=== PATIENT | male | born 1950 ===

== ENCOUNTER 2021-07-10 09:41 | Inpatient (IN) | payer BC, OTHER ==
[~2021-07-10] VITALS: Ht 182.9 cm; Wt 93.5 kg
[2021-07-10 11:20] LABS: Basophils # (auto) 0 10 ^3/uL (0-0.2); Basophils % (auto) 0.7 % (0.0-2.0); Eosinophils # (auto) 0 10 ^3/uL (0-0.8); Hematocrit 45.5 % (41.0-53.0); Hemoglobin 15.7 g/dL (13.5-17.5); Lymphocytes # (auto) 0.4 10 ^3/uL (0.4-5.4); Mean Corpuscular Hemoglobin 30.3 pg (28.0-32.0); Mean Corpuscular Hgb Conc. 34.6 g/dL (32.0-36.0); Mean Corpuscular Volume 87.6 fL (80.0-100.0); Monocytes # (auto) 0.3 10 ^3/uL (0-1.3); Monocytes % (auto) 5.8 % (0.0-12.0); Neutrophils # (auto) 3.9 10 ^3/uL (1.6-8.6); Neutrophils % (auto) 84.5 % (37.0-80.0); Nucleated Red Blood Cells % 0.2 %; Red Cell Distribution Width 14.1 % (11.8-14.3); White Blood Cell 4.6 10^3/uL (4.4-10.8)
[2021-07-10 11:28] LABS: Albumin 3.1 g/dL (3.4-5.0); Calcium 8.6 mg/dL (8.5-10.1); Magnesium 2.8 mg/dL (1.6-2.6); Potassium 3.1 mmol/L (3.5-5.1)
[2021-07-10 11:31] LABS: Bilirubin, Total 0.8 mg/dL (0.2-1.0); Total Protein 7.2 g/dL (6.4-8.2)
[2021-07-10 17:10] LABS: Urine Bacteria NONE SEEN /hpf (None Seen); Urine Blood Negative /uL (Negative); Urine Mucus FEW (None Seen); Urine Specific Gravity 1.027 (1.001-1.035); Urine WBC 1 /hpf (0 - 3)
[2021-07-10] MEDS ORDERED: POTASSIUM CHL 20 Meq TABLET PO ONE (18:00)
[2021-07-10] MEDS ORDERED: REMDESIVIR PER PHARMACY 0 ML IV SCH (18:15)
[2021-07-10] MEDS ORDERED: MORPHINE SULFATE INJECTION 2 MG/ML SYRG IV PRN (18:15)
[2021-07-10] MEDS ORDERED: NITROGLYCERIN 0.4 MG SL TAB SL PRN (18:15)
[2021-07-10 20:02] LABS: Basophils # (auto) 0.1 10 ^3/uL (0-0.2); Basophils % (auto) 1.7 % (0.0-2.0); Eosinophils # (auto) 0 10 ^3/uL (0-0.8); Eosinophils % (auto) 0.3 % (0.0-7.0); Hematocrit 46.5 % (41.0-53.0); Hemoglobin 16.4 g/dL (13.5-17.5); Lymphocytes # (auto) 0.5 10 ^3/uL (0.4-5.4); Lymphocytes % (auto) 9.1 % (10.0-50.0); Mean Corpuscular Hemoglobin 30.6 pg (28.0-32.0); Mean Corpuscular Hgb Conc. 35.2 g/dL (32.0-36.0); Mean Corpuscular Volume 86.9 fL (80.0-100.0); Monocytes # (auto) 0.4 10 ^3/uL (0-1.3); Neutrophils # (auto) 4.2 10 ^3/uL (1.6-8.6); Neutrophils % (auto) 81.9 % (37.0-80.0); Nucleated Red Blood Cells % 0.1 %; Red Blood Cells 5.35 10^6/uL (4.5-5.90); Red Cell Distribution Width 13.9 % (11.8-14.3); White Blood Cell 5.2 10^3/uL (4.4-10.8)
[2021-07-10 20:20] LABS: Albumin 3.1 g/dL (3.4-5.0); BUN/Creatinine Ratio 25.6; Calcium 8.1 mg/dL (8.5-10.1); Magnesium 3.5 mg/dL (1.6-2.6); Potassium 4.2 mmol/L (3.5-5.1)
[2021-07-10 20:28] LABS: Bilirubin, Total 1.2 mg/dL (0.2-1.0); CRP High Sensitivity 10.3 mg/dL (< 0.3); Total Protein 6.9 g/dL (6.4-8.2)
[2021-07-10 20:29] LABS: Thyroid Stimulating Hormone 1.74 uIU/mL (0.358-3.74)
[2021-07-10] MEDS ORDERED: REMDESIVIR 200 MG in NS 210ml LOADING DOSE ADULT IV ONE (22:00)
[2021-07-10] MEDS ORDERED: GABA300C10 PO (23:32)
[2021-07-10] MEDS ORDERED: ATOR40TA52 PO (23:32)
[2021-07-10] MEDS ORDERED: HYDR12.56 PO (23:32)
[2021-07-11] MEDS: ENOXAPARIN SOD 40 MG/0.4 ML SYRINGE SC SCH ×3 (00:27→22:44)
[2021-07-11 05:00] VITALS: BP 139/74
[2021-07-11 08:00] VITALS: BP 124/68
[2021-07-11 08:19] LABS: Basophils # (auto) 0 10 ^3/uL (0-0.2); Basophils % (auto) 0.3 % (0.0-2.0); Eosinophils # (auto) 0 10 ^3/uL (0-0.8); Hematocrit 42.4 % (41.0-53.0); Hemoglobin 14.8 g/dL (13.5-17.5); Lymphocytes # (auto) 0.6 10 ^3/uL (0.4-5.4); Lymphocytes % (auto) 15.2 % (10.0-50.0); Mean Corpuscular Hemoglobin 30.4 pg (28.0-32.0); Mean Corpuscular Hgb Conc. 34.8 g/dL (32.0-36.0); Mean Corpuscular Volume 87.3 fL (80.0-100.0); Monocytes # (auto) 0.2 10 ^3/uL (0-1.3); Monocytes % (auto) 6.7 % (0.0-12.0); Neutrophils # (auto) 2.9 10 ^3/uL (1.6-8.6); Neutrophils % (auto) 77.8 % (37.0-80.0); Nucleated Red Blood Cells % 0.2 %; Red Blood Cells 4.86 10^6/uL (4.5-5.90); Red Cell Distribution Width 13.7 % (11.8-14.3); White Blood Cell 3.7 10^3/uL (4.4-10.8)
[2021-07-11 08:36] LABS: Albumin 2.8 g/dL (3.4-5.0); Calcium 8.2 mg/dL (8.5-10.1)
[2021-07-11 08:50] LABS: BUN/Creatinine Ratio 30.1; CRP High Sensitivity 11.1 mg/dL (< 0.3); Total Protein 6.5 g/dL (6.4-8.2)
[2021-07-11 08:58] LABS: Potassium 2.9 mmol/L (3.5-5.1)
[2021-07-11] MEDS ORDERED: POTASSIUM CHL 20 Meq TABLET PO ONE (09:15)
[2021-07-11] MEDS: DexAMETHasone SOD PHOS 10MG/1ML VIAL INJ IV SCH (10:15)
[2021-07-11] MEDS: ZINC SULFATE 220mg CAP or TAB PO SCH (10:15)
[2021-07-11] MEDS: CHOLECALCIFEROL (VITD3) 2,000 UNIT CAP/TAB PO SCH (10:16)
[2021-07-11] MEDS: ASCORBIC ACID 1,000 MG TAB PO SCH (10:16)
[2021-07-11] MEDS: AZITHROMYCIN 500MG/ 250ML 250 ML IV SCH (10:17)
[2021-07-11 12:00] VITALS: BP 137/79
[2021-07-11] MEDS: REMDESIVIR 100mg 100 MG in SODIUM CHL 0.9% 230 ML IV SCH (15:30)
[2021-07-11] MEDS: ALBUTEROL SULF HFA 90MCG INH 200DOSE IN PRN ×2 (15:33→20:08)
[2021-07-11 16:00] VITALS: BP 125/73
[2021-07-11 22:00] VITALS: BP 138/76
[2021-07-12 05:00] VITALS: BP 144/70
[2021-07-12 08:10] LABS: Basophils # (auto) 0 10 ^3/uL (0-0.2); Basophils % (auto) 0.1 % (0.0-2.0); Eosinophils # (auto) 0 10 ^3/uL (0-0.8); Hematocrit 43.2 % (41.0-53.0); Hemoglobin 14.9 g/dL (13.5-17.5); Lymphocytes # (auto) 0.8 10 ^3/uL (0.4-5.4); Lymphocytes % (auto) 16.1 % (10.0-50.0); Mean Corpuscular Hemoglobin 30.5 pg (28.0-32.0); Mean Corpuscular Hgb Conc. 34.5 g/dL (32.0-36.0); Mean Corpuscular Volume 88.4 fL (80.0-100.0); Monocytes # (auto) 0.3 10 ^3/uL (0-1.3); Monocytes % (auto) 5.8 % (0.0-12.0); Neutrophils # (auto) 3.8 10 ^3/uL (1.6-8.6); Nucleated Red Blood Cells % 0.2 %; Red Blood Cells 4.89 10^6/uL (4.5-5.90); Red Cell Distribution Width 13.9 % (11.8-14.3); White Blood Cell 4.9 10^3/uL (4.4-10.8)
[2021-07-12 08:27] LABS: Potassium 3.6 mmol/L (3.5-5.1)
[2021-07-12] MEDS: ALBUTEROL SULF HFA 90MCG INH 200DOSE IN PRN (08:33)
[2021-07-12 08:49] LABS: Albumin 2.8 g/dL (3.4-5.0); BUN/Creatinine Ratio 34.4; Bilirubin, Total 0.8 mg/dL (0.2-1.0); CRP High Sensitivity 7.94 mg/dL (< 0.3); Calcium 8.2 mg/dL (8.5-10.1)
[2021-07-12 09:00] VITALS: BP 121/73
[2021-07-12] MEDS: ASCORBIC ACID 1,000 MG TAB PO SCH (10:05)
[2021-07-12] MEDS: CHOLECALCIFEROL (VITD3) 2,000 UNIT CAP/TAB PO SCH (10:05)
[2021-07-12] MEDS: ENOXAPARIN SOD 40 MG/0.4 ML SYRINGE SC SCH ×2 (10:06→22:05)
[2021-07-12] MEDS: ZINC SULFATE 220mg CAP or TAB PO SCH (10:06)
[2021-07-12] MEDS: DexAMETHasone SOD PHOS 10MG/1ML VIAL INJ IV SCH (10:07)
[2021-07-12] MEDS: AZITHROMYCIN 500MG/ 250ML 250 ML IV SCH (10:08)
[2021-07-12] MEDS ORDERED: sulfaSALAzine 500 MG TAB PO ONE (12:45)
[2021-07-12] MEDS ORDERED: ATOR10TA PO (12:58)
[2021-07-12] MEDS ORDERED: SULF500T8 PO (12:58)
[2021-07-12] MEDS ORDERED: ALOG1TAB2 PO (12:58)
[2021-07-12] MEDS ORDERED: HYDR25TA5 PO (12:58)
[2021-07-12] MEDS ORDERED: GABA-339 PO (12:58)
[2021-07-12] MEDS ORDERED: CETI1TAB36 PO (12:58)
[2021-07-12] MEDS ORDERED: PRE1T PO (12:58)
[2021-07-12] MEDS ORDERED: OMEP20TA PO (12:58)
[2021-07-12] MEDS ORDERED: PANC3000 PO (12:58)
[2021-07-12 13:00] VITALS: BP 132/78
[2021-07-12] MEDS ORDERED: TRAM50TA2 PO (13:08)
[2021-07-12] MEDS ORDERED: BACL10TA PO (13:08)
[2021-07-12] MEDS ORDERED: CHOL200029 PO (13:08)
[2021-07-12] MEDS: GABAPENTIN 300 MG CAP PO SCH ×2 (13:54→22:05)
[2021-07-12] MEDS: REMDESIVIR 100mg 100 MG in SODIUM CHL 0.9% 230 ML IV SCH (15:25)
[2021-07-12 17:00] VITALS: BP 138/80
[2021-07-12 22:00] VITALS: BP 125/77
[2021-07-12] MEDS: sulfaSALAzine 500 MG TAB PO SCH (22:04)
[2021-07-13 05:00] VITALS: BP 99/52
[2021-07-13] MEDS: GABAPENTIN 300 MG CAP PO SCH ×3 (05:46→21:32)
[2021-07-13 08:10] LABS: Basophils # (auto) 0 10 ^3/uL (0-0.2); Basophils % (auto) 0.2 % (0.0-2.0); Eosinophils # (auto) 0 10 ^3/uL (0-0.8); Hemoglobin 14.3 g/dL (13.5-17.5); Lymphocytes # (auto) 0.7 10 ^3/uL (0.4-5.4); Mean Corpuscular Hemoglobin 30.8 pg (28.0-32.0); Mean Corpuscular Hgb Conc. 34.8 g/dL (32.0-36.0); Mean Corpuscular Volume 88.6 fL (80.0-100.0); Monocytes # (auto) 0.2 10 ^3/uL (0-1.3); Monocytes % (auto) 5.4 % (0.0-12.0); Neutrophils # (auto) 3.6 10 ^3/uL (1.6-8.6); Neutrophils % (auto) 79.4 % (37.0-80.0); Nucleated Red Blood Cells % 0.3 %; Red Blood Cells 4.63 10^6/uL (4.5-5.90); Red Cell Distribution Width 13.7 % (11.8-14.3); White Blood Cell 4.5 10^3/uL (4.4-10.8)
[2021-07-13 08:30] LABS: Potassium 3.1 mmol/L (3.5-5.1)
[2021-07-13 08:43] VITALS: BP 123/65
[2021-07-13 09:07] LABS: Albumin 2.6 g/dL (3.4-5.0); BUN/Creatinine Ratio 28.6; Bilirubin, Total 0.6 mg/dL (0.2-1.0); CRP High Sensitivity 4.29 mg/dL (< 0.3); Calcium 8.2 mg/dL (8.5-10.1); Total Protein 6.1 g/dL (6.4-8.2)
[2021-07-13] MEDS: CHOLECALCIFEROL (VITD3) 2,000 UNIT CAP/TAB PO SCH (09:27)
[2021-07-13] MEDS: ZINC SULFATE 220mg CAP or TAB PO SCH (09:27)
[2021-07-13] MEDS: AZITHROMYCIN 500MG/ 250ML 250 ML IV SCH (09:27)
[2021-07-13] MEDS: ASCORBIC ACID 1,000 MG TAB PO SCH (09:27)
[2021-07-13] MEDS: ENOXAPARIN SOD 40 MG/0.4 ML SYRINGE SC SCH ×2 (09:28→21:32)
[2021-07-13] MEDS: DexAMETHasone SOD PHOS 10MG/1ML VIAL INJ IV SCH (09:29)
[2021-07-13] MEDS: sulfaSALAzine 500 MG TAB PO SCH ×2 (09:30→21:32)
[2021-07-13] MEDS: HCTZ 25 MG TAB PO SCH (09:31)
[2021-07-13] MEDS: ALBUTEROL SULF HFA 90MCG INH 200DOSE IN PRN ×2 (12:01→23:48)
[2021-07-13 13:00] VITALS: BP 130/59
[2021-07-13] MEDS: REMDESIVIR 100mg 100 MG in SODIUM CHL 0.9% 230 ML IV SCH (14:35)
[2021-07-13 17:00] VITALS: BP 123/76
[2021-07-13 22:00] VITALS: BP 123/82
[2021-07-14 05:00] VITALS: BP 115/63
[2021-07-14] MEDS: GABAPENTIN 300 MG CAP PO SCH ×3 (05:57→21:58)
[2021-07-14] MEDS ORDERED: POTASSIUM CHL 20 Meq TABLET PO ONE (07:00)
[2021-07-14 07:39] LABS: Basophils # (auto) 0 10 ^3/uL (0-0.2); Eosinophils # (auto) 0 10 ^3/uL (0-0.8); Eosinophils % (auto) 0.5 % (0.0-7.0); Hemoglobin 14.4 g/dL (13.5-17.5); Lymphocytes # (auto) 0.5 10 ^3/uL (0.4-5.4); Lymphocytes % (auto) 7.4 % (10.0-50.0); Mean Corpuscular Hemoglobin 30.2 pg (28.0-32.0); Mean Corpuscular Hgb Conc. 34.2 g/dL (32.0-36.0); Mean Corpuscular Volume 88.5 fL (80.0-100.0); Monocytes # (auto) 0.1 10 ^3/uL (0-1.3); Monocytes % (auto) 2.3 % (0.0-12.0); Neutrophils # (auto) 5.8 10 ^3/uL (1.6-8.6); Neutrophils % (auto) 89.8 % (37.0-80.0); Nucleated Red Blood Cells % 0.2 %; Red Blood Cells 4.75 10^6/uL (4.5-5.90); Red Cell Distribution Width 13.9 % (11.8-14.3); White Blood Cell 6.4 10^3/uL (4.4-10.8)
[2021-07-14 07:47] LABS: Potassium 3.8 mmol/L (3.5-5.1)
[2021-07-14 07:57] LABS: Albumin 2.6 g/dL (3.4-5.0); BUN/Creatinine Ratio 20.9; Bilirubin, Total 0.6 mg/dL (0.2-1.0); Calcium 8.4 mg/dL (8.5-10.1); Total Protein 5.9 g/dL (6.4-8.2)
[2021-07-14 09:00] VITALS: BP 119/55
[2021-07-14] MEDS: ZINC SULFATE 220mg CAP or TAB PO SCH (09:52)
[2021-07-14] MEDS: ENOXAPARIN SOD 40 MG/0.4 ML SYRINGE SC SCH ×2 (09:52→22:00)
[2021-07-14] MEDS: CHOLECALCIFEROL (VITD3) 2,000 UNIT CAP/TAB PO SCH (09:52)
[2021-07-14] MEDS: ASCORBIC ACID 1,000 MG TAB PO SCH (09:52)
[2021-07-14] MEDS: AZITHROMYCIN 500MG/ 250ML 250 ML IV SCH (09:53)
[2021-07-14] MEDS: DexAMETHasone SOD PHOS 10MG/1ML VIAL INJ IV SCH (09:53)
[2021-07-14] MEDS: sulfaSALAzine 500 MG TAB PO SCH ×2 (09:53→22:06)
[2021-07-14] MEDS: HCTZ 25 MG TAB PO SCH (09:54)
[2021-07-14 13:05] VITALS: BP 122/65
[2021-07-14 14:40] VITALS: BP 125/64
[2021-07-14] MEDS: REMDESIVIR 100mg 100 MG in SODIUM CHL 0.9% 230 ML IV SCH (14:53)
[2021-07-14] MEDS: ALBUTEROL SULF HFA 90MCG INH 200DOSE IN PRN (15:22)
[2021-07-14 16:55] VITALS: BP 125/64
[2021-07-14] MEDS ORDERED: DEXTROSE (50%) 50ML SYRG IV PRN (18:15)
[2021-07-14] MEDS: ATORVASTATIN 20 MG TAB PO SCH (21:57)
[2021-07-14 22:00] VITALS: BP 110/57
[2021-07-14] MEDS: ACCU-CHEK COMFORT CURVE STRIP VI SCH (22:00)
[2021-07-14] MEDS: InsuLIN REG 1unit/0.01ml Soln (100units/ml) SC SCH (22:02)
[2021-07-15] MEDS: ACETAMINOPHEN 500 MG TAB PO PRN (04:04)
[2021-07-15 05:00] VITALS: BP 106/53
[2021-07-15] MEDS: GABAPENTIN 300 MG CAP PO SCH ×3 (05:57→21:19)
[2021-07-15] MEDS: ACCU-CHEK COMFORT CURVE STRIP VI SCH ×4 (05:57→21:20)
[2021-07-15] MEDS: InsuLIN REG 1unit/0.01ml Soln (100units/ml) SC SCH ×4 (05:57→21:31)
[2021-07-15 08:30] VITALS: BP 109/64
[2021-07-15] MEDS: ZINC SULFATE 220mg CAP or TAB PO SCH (10:47)
[2021-07-15] MEDS: CHOLECALCIFEROL (VITD3) 2,000 UNIT CAP/TAB PO SCH (10:48)
[2021-07-15] MEDS: ASCORBIC ACID 1,000 MG TAB PO SCH (10:48)
[2021-07-15] MEDS: DexAMETHasone SOD PHOS 10MG/1ML VIAL INJ IV SCH (10:49)
[2021-07-15] MEDS: AZITHROMYCIN 500MG/ 250ML 250 ML IV SCH (10:52)
[2021-07-15] MEDS: ENOXAPARIN SOD 40 MG/0.4 ML SYRINGE SC SCH ×2 (10:52→21:20)
[2021-07-15] MEDS: sulfaSALAzine 500 MG TAB PO SCH ×2 (10:52→21:18)
[2021-07-15] MEDS: HCTZ 25 MG TAB PO SCH (10:52)
[2021-07-15 12:39] VITALS: BP 117/76
[2021-07-15 14:06] LABS: Basophils # (auto) 0 10 ^3/uL (0-0.2); Eosinophils # (auto) 0.1 10 ^3/uL (0-0.8); Eosinophils % (auto) 0.6 % (0.0-7.0); Hematocrit 43.9 % (41.0-53.0); Hemoglobin 15.4 g/dL (13.5-17.5); Lymphocytes # (auto) 0.2 10 ^3/uL (0.4-5.4); Lymphocytes % (auto) 2.6 % (10.0-50.0); Mean Corpuscular Hemoglobin 30.7 pg (28.0-32.0); Mean Corpuscular Hgb Conc. 35.1 g/dL (32.0-36.0); Mean Corpuscular Volume 87.5 fL (80.0-100.0); Monocytes # (auto) 0.2 10 ^3/uL (0-1.3); Monocytes % (auto) 1.8 % (0.0-12.0); Neutrophils # (auto) 8.3 10 ^3/uL (1.6-8.6); Nucleated Red Blood Cells % 0.2 %; Red Blood Cells 5.01 10^6/uL (4.5-5.90); Red Cell Distribution Width 14.1 % (11.8-14.3); White Blood Cell 8.7 10^3/uL (4.4-10.8)
[2021-07-15 14:24] LABS: Albumin 2.6 g/dL (3.4-5.0); Calcium 8.6 mg/dL (8.5-10.1); Potassium 4.3 mmol/L (3.5-5.1)
[2021-07-15 14:32] LABS: BUN/Creatinine Ratio 18.8; Bilirubin, Total 0.7 mg/dL (0.2-1.0); Total Protein 6.4 g/dL (6.4-8.2)
[2021-07-15 15:30] VITALS: BP 123/67
[2021-07-15] MEDS: ATORVASTATIN 20 MG TAB PO SCH (21:18)
[2021-07-15 22:00] VITALS: BP 121/68
[2021-07-16] MEDS: ALBUTEROL SULF HFA 90MCG INH 200DOSE IN PRN ×2 (05:55→19:33)
[2021-07-16] MEDS: ACCU-CHEK COMFORT CURVE STRIP VI SCH ×4 (06:01→21:24)
[2021-07-16] MEDS: InsuLIN REG 1unit/0.01ml Soln (100units/ml) SC SCH ×4 (06:02→21:29)
[2021-07-16] MEDS: GABAPENTIN 300 MG CAP PO SCH ×3 (06:03→21:23)
[2021-07-16 06:08] VITALS: BP 127/71
[2021-07-16 07:18] LABS: Basophils # (auto) 0 10 ^3/uL (0-0.2); Basophils % (auto) 0.6 % (0.0-2.0); Eosinophils # (auto) 0.1 10 ^3/uL (0-0.8); Eosinophils % (auto) 0.9 % (0.0-7.0); Hematocrit 42.1 % (41.0-53.0); Hemoglobin 14.6 g/dL (13.5-17.5); Lymphocytes # (auto) 0.5 10 ^3/uL (0.4-5.4); Lymphocytes % (auto) 6.9 % (10.0-50.0); Mean Corpuscular Hemoglobin 31.1 pg (28.0-32.0); Mean Corpuscular Hgb Conc. 34.8 g/dL (32.0-36.0); Mean Corpuscular Volume 89.5 fL (80.0-100.0); Monocytes # (auto) 0.3 10 ^3/uL (0-1.3); Monocytes % (auto) 3.7 % (0.0-12.0); Neutrophils # (auto) 6.8 10 ^3/uL (1.6-8.6); Neutrophils % (auto) 87.9 % (37.0-80.0); Nucleated Red Blood Cells % 0.1 %; Red Blood Cells 4.71 10^6/uL (4.5-5.90); Red Cell Distribution Width 14.2 % (11.8-14.3); White Blood Cell 7.7 10^3/uL (4.4-10.8)
[2021-07-16 07:28] LABS: Potassium 4.6 mmol/L (3.5-5.1)
[2021-07-16 07:34] LABS: Albumin 2.5 g/dL (3.4-5.0); BUN/Creatinine Ratio 31.5; Bilirubin, Total 0.7 mg/dL (0.2-1.0); Calcium 8.3 mg/dL (8.5-10.1); Total Protein 5.6 g/dL (6.4-8.2)
[2021-07-16 09:09] VITALS: BP 97/54
[2021-07-16] MEDS: sulfaSALAzine 500 MG TAB PO SCH ×2 (10:00→21:23)
[2021-07-16] MEDS: DexAMETHasone SOD PHOS 10MG/1ML VIAL INJ IV SCH (11:22)
[2021-07-16] MEDS: HCTZ 25 MG TAB PO SCH (11:22)
[2021-07-16] MEDS: ASCORBIC ACID 1,000 MG TAB PO SCH (11:22)
[2021-07-16] MEDS: ZINC SULFATE 220mg CAP or TAB PO SCH (11:22)
[2021-07-16] MEDS: CHOLECALCIFEROL (VITD3) 2,000 UNIT CAP/TAB PO SCH (11:23)
[2021-07-16] MEDS: ENOXAPARIN SOD 40 MG/0.4 ML SYRINGE SC SCH ×2 (11:23→21:24)
[2021-07-16 12:31] VITALS: BP 138/84
[2021-07-16 16:36] VITALS: BP 118/71
[2021-07-16] MEDS: ATORVASTATIN 20 MG TAB PO SCH (21:23)
[2021-07-16 22:00] VITALS: BP 131/79
[2021-07-17 05:00] VITALS: BP 116/51
[2021-07-17 06:05] LABS: Basophils # (auto) 0 10 ^3/uL (0-0.2); Basophils % (auto) 0.2 % (0.0-2.0); Eosinophils # (auto) 0.1 10 ^3/uL (0-0.8); Eosinophils % (auto) 1.6 % (0.0-7.0); Hemoglobin 15.3 g/dL (13.5-17.5); Lymphocytes # (auto) 0.6 10 ^3/uL (0.4-5.4); Lymphocytes % (auto) 7.8 % (10.0-50.0); Mean Corpuscular Hemoglobin 30.1 pg (28.0-32.0); Mean Corpuscular Hgb Conc. 33.3 g/dL (32.0-36.0); Mean Corpuscular Volume 90.3 fL (80.0-100.0); Monocytes # (auto) 0.5 10 ^3/uL (0-1.3); Monocytes % (auto) 6.5 % (0.0-12.0); Neutrophils # (auto) 6.3 10 ^3/uL (1.6-8.6); Neutrophils % (auto) 83.9 % (37.0-80.0); Nucleated Red Blood Cells % 0.2 %; Red Cell Distribution Width 14.3 % (11.8-14.3); White Blood Cell 7.5 10^3/uL (4.4-10.8)
[2021-07-17 06:38] LABS: Anion Gap 8 (5-15); Calcium 8.5 mg/dL (8.5-10.1); Carbon Dioxide 28 mmol/L (21-32); Chloride 107 mmol/L (98-107); Potassium 4.9 mmol/L (3.5-5.1); Sodium 143 mmol/L (136-145)
[2021-07-17] MEDS: GABAPENTIN 300 MG CAP PO SCH ×3 (06:38→20:28)
[2021-07-17] MEDS: ACCU-CHEK COMFORT CURVE STRIP VI SCH ×4 (06:38→20:29)
[2021-07-17 06:42] LABS: Alanine Aminotransferase 118 U/L (16-61); Albumin 2.5 g/dL (3.4-5.0); Aspartate Aminotransferase 105 U/L (15-37); BUN/Creatinine Ratio 33.3; Blood Urea Nitrogen 19 mg/dL (7-18); GFR African American 183 mL/min; GFR Non-African American 151 mL/min; Glucose 101 mg/dL (74-106)
[2021-07-17 06:44] LABS: Alkaline Phosphatase 69 U/L (45-117); Bilirubin, Total 0.7 mg/dL (0.2-1.0); Total Protein 5.8 g/dL (6.4-8.2)
[2021-07-17] MEDS: InsuLIN REG 1unit/0.01ml Soln (100units/ml) SC SCH ×4 (06:52→20:30)
[2021-07-17 09:00] VITALS: BP 123/73
[2021-07-17] MEDS: ENOXAPARIN SOD 40 MG/0.4 ML SYRINGE SC SCH ×2 (10:55→20:29)
[2021-07-17] MEDS: ZINC SULFATE 220mg CAP or TAB PO SCH (10:55)
[2021-07-17] MEDS: ASCORBIC ACID 1,000 MG TAB PO SCH (10:55)
[2021-07-17] MEDS: CHOLECALCIFEROL (VITD3) 2,000 UNIT CAP/TAB PO SCH (10:56)
[2021-07-17] MEDS: DexAMETHasone SOD PHOS 10MG/1ML VIAL INJ IV SCH (10:59)
[2021-07-17] MEDS: HCTZ 25 MG TAB PO SCH (11:00)
[2021-07-17] MEDS: sulfaSALAzine 500 MG TAB PO SCH ×2 (11:27→20:28)
[2021-07-17 13:00] VITALS: BP 146/70
[2021-07-17 17:00] VITALS: BP 133/84
[2021-07-17] MEDS: ATORVASTATIN 20 MG TAB PO SCH (20:28)
[2021-07-17 22:00] VITALS: BP 134/78
[2021-07-17] MEDS: ALBUTEROL SULF HFA 90MCG INH 200DOSE IN PRN (23:59)
[2021-07-18 05:00] VITALS: BP 106/71
[2021-07-18] MEDS: ALBUTEROL SULF HFA 90MCG INH 200DOSE IN PRN ×2 (05:57→21:22)
[2021-07-18] MEDS: GABAPENTIN 300 MG CAP PO SCH ×3 (06:40→21:21)
[2021-07-18] MEDS: ACCU-CHEK COMFORT CURVE STRIP VI SCH ×4 (06:40→21:22)
[2021-07-18] MEDS: InsuLIN REG 1unit/0.01ml Soln (100units/ml) SC SCH ×4 (06:46→21:54)
[2021-07-18 07:14] LABS: Basophils # (auto) 0 10 ^3/uL (0-0.2); Basophils % (auto) 0.6 % (0.0-2.0); Eosinophils # (auto) 0 10 ^3/uL (0-0.8); Eosinophils % (auto) 0.5 % (0.0-7.0); Hematocrit 43.9 % (41.0-53.0); Lymphocytes # (auto) 0.7 10 ^3/uL (0.4-5.4); Lymphocytes % (auto) 9.6 % (10.0-50.0); Mean Corpuscular Hemoglobin 30.5 pg (28.0-32.0); Mean Corpuscular Hgb Conc. 34.2 g/dL (32.0-36.0); Mean Corpuscular Volume 89.4 fL (80.0-100.0); Monocytes # (auto) 0.6 10 ^3/uL (0-1.3); Monocytes % (auto) 8.2 % (0.0-12.0); Neutrophils # (auto) 5.5 10 ^3/uL (1.6-8.6); Neutrophils % (auto) 81.1 % (37.0-80.0); Nucleated Red Blood Cells % 0.2 %; Red Blood Cells 4.91 10^6/uL (4.5-5.90); Red Cell Distribution Width 13.7 % (11.8-14.3); White Blood Cell 6.8 10^3/uL (4.4-10.8)
[2021-07-18 07:35] LABS: Potassium 3.9 mmol/L (3.5-5.1)
[2021-07-18 07:55] LABS: Albumin 2.5 g/dL (3.4-5.0); BUN/Creatinine Ratio 33.9; Calcium 9.1 mg/dL (8.5-10.1); Total Protein 6.6 g/dL (6.4-8.2)
[2021-07-18 07:57] LABS: Bilirubin, Total 0.7 mg/dL (0.2-1.0)
[2021-07-18 08:20] VITALS: BP 119/67
[2021-07-18] MEDS: sulfaSALAzine 500 MG TAB PO SCH ×2 (10:00→21:21)
[2021-07-18 13:20] VITALS: BP 128/76
[2021-07-18] MEDS: ASCORBIC ACID 1,000 MG TAB PO SCH (14:00)
[2021-07-18] MEDS: ENOXAPARIN SOD 40 MG/0.4 ML SYRINGE SC SCH ×2 (14:00→21:22)
[2021-07-18] MEDS: DexAMETHasone SOD PHOS 10MG/1ML VIAL INJ IV SCH (14:00)
[2021-07-18] MEDS: HCTZ 25 MG TAB PO SCH (14:00)
[2021-07-18] MEDS: ZINC SULFATE 220mg CAP or TAB PO SCH (14:00)
[2021-07-18] MEDS: CHOLECALCIFEROL (VITD3) 2,000 UNIT CAP/TAB PO SCH (14:00)
[2021-07-18] MEDS: ATORVASTATIN 20 MG TAB PO SCH (21:21)
[2021-07-18 22:00] VITALS: BP 114/58
[2021-07-19 05:00] VITALS: BP 130/73
[2021-07-19] MEDS: GABAPENTIN 300 MG CAP PO SCH ×3 (06:10→20:50)
[2021-07-19] MEDS: ACCU-CHEK COMFORT CURVE STRIP VI SCH ×4 (06:10→20:50)
[2021-07-19] MEDS: InsuLIN REG 1unit/0.01ml Soln (100units/ml) SC SCH ×4 (06:10→20:50)
[2021-07-19 09:00] VITALS: BP 155/65
[2021-07-19] MEDS: ZINC SULFATE 220mg CAP or TAB PO SCH (09:41)
[2021-07-19] MEDS: ENOXAPARIN SOD 40 MG/0.4 ML SYRINGE SC SCH ×2 (09:41→20:50)
[2021-07-19] MEDS: DexAMETHasone SOD PHOS 10MG/1ML VIAL INJ IV SCH (09:41)
[2021-07-19] MEDS: sulfaSALAzine 500 MG TAB PO SCH ×2 (09:42→20:49)
[2021-07-19] MEDS: ASCORBIC ACID 1,000 MG TAB PO SCH (09:47)
[2021-07-19] MEDS: CHOLECALCIFEROL (VITD3) 2,000 UNIT CAP/TAB PO SCH (09:47)
[2021-07-19] MEDS: HCTZ 25 MG TAB PO SCH (10:03)
[2021-07-19 10:38] LABS: Basophils # (auto) 0.1 10 ^3/uL (0-0.2); Basophils % (auto) 1.1 % (0.0-2.0); Eosinophils # (auto) 0 10 ^3/uL (0-0.8); Eosinophils % (auto) 0.6 % (0.0-7.0); Hematocrit 41.7 % (41.0-53.0); Hemoglobin 14.4 g/dL (13.5-17.5); Lymphocytes # (auto) 0.8 10 ^3/uL (0.4-5.4); Lymphocytes % (auto) 10.5 % (10.0-50.0); Mean Corpuscular Hemoglobin 30.8 pg (28.0-32.0); Mean Corpuscular Hgb Conc. 34.6 g/dL (32.0-36.0); Monocytes # (auto) 0.4 10 ^3/uL (0-1.3); Monocytes % (auto) 4.9 % (0.0-12.0); Neutrophils # (auto) 6.1 10 ^3/uL (1.6-8.6); Neutrophils % (auto) 82.9 % (37.0-80.0); Red Blood Cells 4.68 10^6/uL (4.5-5.90); Red Cell Distribution Width 13.9 % (11.8-14.3); White Blood Cell 7.4 10^3/uL (4.4-10.8)
[2021-07-19 10:46] LABS: Potassium 3.6 mmol/L (3.5-5.1)
[2021-07-19 10:53] LABS: Albumin 2.3 g/dL (3.4-5.0); BUN/Creatinine Ratio 29.2; Bilirubin, Total 0.5 mg/dL (0.2-1.0); Calcium 8.7 mg/dL (8.5-10.1); Total Protein 6.2 g/dL (6.4-8.2)
[2021-07-19 13:06] VITALS: BP 122/81
[2021-07-19] MEDS: SALINE 0.65 % NASAL SPRAY 45ML BOTTLE EACHNOSTRI SCH ×2 (15:00→20:49)
[2021-07-19 17:34] VITALS: BP 136/75
[2021-07-19] MEDS: ATORVASTATIN 20 MG TAB PO SCH (20:49)
[2021-07-19 22:17] VITALS: BP 131/71
[2021-07-20 05:00] VITALS: BP 130/68
[2021-07-20] MEDS: ALBUTEROL SULF HFA 90MCG INH 200DOSE IN PRN (06:04)
[2021-07-20] MEDS: GABAPENTIN 300 MG CAP PO SCH ×3 (06:37→21:32)
[2021-07-20] MEDS: ACCU-CHEK COMFORT CURVE STRIP VI SCH ×4 (06:37→21:34)
[2021-07-20] MEDS: SALINE 0.65 % NASAL SPRAY 45ML BOTTLE EACHNOSTRI SCH ×3 (06:37→21:31)
[2021-07-20] MEDS: InsuLIN REG 1unit/0.01ml Soln (100units/ml) SC SCH ×4 (06:37→21:38)
[2021-07-20 09:00] VITALS: BP 138/70
[2021-07-20 09:08] LABS: Basophils # (auto) 0 10 ^3/uL (0-0.2); Basophils % (auto) 0.1 % (0.0-2.0); Eosinophils # (auto) 0.1 10 ^3/uL (0-0.8); Eosinophils % (auto) 0.8 % (0.0-7.0); Hematocrit 47.8 % (41.0-53.0); Hemoglobin 16.1 g/dL (13.5-17.5); Lymphocytes % (auto) 11.8 % (10.0-50.0); Mean Corpuscular Hemoglobin 30.4 pg (28.0-32.0); Mean Corpuscular Hgb Conc. 33.7 g/dL (32.0-36.0); Mean Corpuscular Volume 90.3 fL (80.0-100.0); Monocytes # (auto) 0.5 10 ^3/uL (0-1.3); Monocytes % (auto) 5.8 % (0.0-12.0); Neutrophils # (auto) 7.2 10 ^3/uL (1.6-8.6); Neutrophils % (auto) 81.5 % (37.0-80.0); Nucleated Red Blood Cells % 0.1 %; White Blood Cell 8.8 10^3/uL (4.4-10.8)
[2021-07-20 09:20] LABS: Potassium 3.8 mmol/L (3.5-5.1)
[2021-07-20 09:26] LABS: Albumin 2.7 g/dL (3.4-5.0); Bilirubin, Total 0.6 mg/dL (0.2-1.0); Calcium 9.1 mg/dL (8.5-10.1)
[2021-07-20] MEDS: ZINC SULFATE 220mg CAP or TAB PO SCH (10:53)
[2021-07-20] MEDS: sulfaSALAzine 500 MG TAB PO SCH ×2 (10:53→21:31)
[2021-07-20] MEDS: DexAMETHasone SOD PHOS 10MG/1ML VIAL INJ IV SCH (10:53)
[2021-07-20] MEDS: ENOXAPARIN SOD 40 MG/0.4 ML SYRINGE SC SCH ×2 (10:54→21:33)
[2021-07-20] MEDS: ASCORBIC ACID 1,000 MG TAB PO SCH (10:54)
[2021-07-20] MEDS: CHOLECALCIFEROL (VITD3) 2,000 UNIT CAP/TAB PO SCH (10:54)
[2021-07-20] MEDS: HCTZ 25 MG TAB PO SCH (10:54)
[2021-07-20 13:00] VITALS: BP 132/64
[2021-07-20 17:00] VITALS: BP 136/78
[2021-07-20] MEDS: ATORVASTATIN 20 MG TAB PO SCH (21:32)
[2021-07-20 22:00] VITALS: BP 121/57
[2021-07-21 05:00] VITALS: BP 94/40
[2021-07-21] MEDS: GABAPENTIN 300 MG CAP PO SCH ×3 (06:56→21:50)
[2021-07-21] MEDS: SALINE 0.65 % NASAL SPRAY 45ML BOTTLE EACHNOSTRI SCH ×3 (06:56→21:57)
[2021-07-21] MEDS: InsuLIN REG 1unit/0.01ml Soln (100units/ml) SC SCH ×4 (06:57→21:53)
[2021-07-21] MEDS: ACCU-CHEK COMFORT CURVE STRIP VI SCH ×4 (06:57→21:47)
[2021-07-21] MEDS: ALBUTEROL SULF HFA 90MCG INH 200DOSE IN PRN (07:39)
[2021-07-21 07:42] LABS: Basophils # (auto) 0.3 10 ^3/uL (0-0.2); Basophils % (auto) 3.3 % (0.0-2.0); Eosinophils # (auto) 0 10 ^3/uL (0-0.8); Eosinophils % (auto) 0.4 % (0.0-7.0); Hematocrit 45.9 % (41.0-53.0); Hemoglobin 15.4 g/dL (13.5-17.5); Lymphocytes # (auto) 0.8 10 ^3/uL (0.4-5.4); Lymphocytes % (auto) 10.1 % (10.0-50.0); Mean Corpuscular Hemoglobin 29.8 pg (28.0-32.0); Mean Corpuscular Hgb Conc. 33.6 g/dL (32.0-36.0); Mean Corpuscular Volume 88.8 fL (80.0-100.0); Monocytes # (auto) 0.6 10 ^3/uL (0-1.3); Monocytes % (auto) 7.2 % (0.0-12.0); Neutrophils # (auto) 6.3 10 ^3/uL (1.6-8.6); Nucleated Red Blood Cells % 0.3 %; Red Blood Cells 5.16 10^6/uL (4.5-5.90); Red Cell Distribution Width 13.6 % (11.8-14.3)
[2021-07-21 07:56] LABS: Potassium 4.2 mmol/L (3.5-5.1)
[2021-07-21 08:04] LABS: Albumin 2.7 g/dL (3.4-5.0); BUN/Creatinine Ratio 30.3; Bilirubin, Total 0.7 mg/dL (0.2-1.0); Calcium 9.1 mg/dL (8.5-10.1); Total Protein 7.3 g/dL (6.4-8.2)
[2021-07-21 09:00] VITALS: BP 128/60
[2021-07-21] MEDS: ZINC SULFATE 220mg CAP or TAB PO SCH (09:44)
[2021-07-21] MEDS: DexAMETHasone SOD PHOS 10MG/1ML VIAL INJ IV SCH (09:44)
[2021-07-21] MEDS: CHOLECALCIFEROL (VITD3) 2,000 UNIT CAP/TAB PO SCH (09:45)
[2021-07-21] MEDS: HCTZ 25 MG TAB PO SCH (09:45)
[2021-07-21] MEDS: ASCORBIC ACID 1,000 MG TAB PO SCH (09:45)
[2021-07-21] MEDS: ENOXAPARIN SOD 40 MG/0.4 ML SYRINGE SC SCH ×2 (09:45→21:48)
[2021-07-21] MEDS: sulfaSALAzine 500 MG TAB PO SCH ×2 (11:30→22:45)
[2021-07-21 13:00] VITALS: BP 124/71
[2021-07-21 17:00] VITALS: BP 117/66
[2021-07-21 21:36] VITALS: BP 121/65
[2021-07-21] MEDS: ATORVASTATIN 20 MG TAB PO SCH (21:50)
[2021-07-22 04:37] VITALS: BP 123/68
[2021-07-22] MEDS: SALINE 0.65 % NASAL SPRAY 45ML BOTTLE EACHNOSTRI SCH ×3 (06:13→22:34)
[2021-07-22] MEDS: GABAPENTIN 300 MG CAP PO SCH ×3 (06:13→22:30)
[2021-07-22] MEDS: ACCU-CHEK COMFORT CURVE STRIP VI SCH ×4 (06:14→22:32)
[2021-07-22] MEDS: InsuLIN REG 1unit/0.01ml Soln (100units/ml) SC SCH ×4 (06:14→22:00)
[2021-07-22 06:55] LABS: Basophils # (auto) 0 10 ^3/uL (0-0.2); Basophils % (auto) 0.4 % (0.0-2.0); Eosinophils # (auto) 0 10 ^3/uL (0-0.8); Eosinophils % (auto) 0.1 % (0.0-7.0); Hematocrit 41.6 % (41.0-53.0); Hemoglobin 14.1 g/dL (13.5-17.5); Lymphocytes % (auto) 11.1 % (10.0-50.0); Mean Corpuscular Hemoglobin 30.1 pg (28.0-32.0); Mean Corpuscular Hgb Conc. 33.9 g/dL (32.0-36.0); Mean Corpuscular Volume 88.8 fL (80.0-100.0); Monocytes # (auto) 0.8 10 ^3/uL (0-1.3); Monocytes % (auto) 8.2 % (0.0-12.0); Neutrophils # (auto) 7.3 10 ^3/uL (1.6-8.6); Neutrophils % (auto) 80.2 % (37.0-80.0); Nucleated Red Blood Cells % 0.1 %; Red Blood Cells 4.69 10^6/uL (4.5-5.90); Red Cell Distribution Width 13.9 % (11.8-14.3); White Blood Cell 9.1 10^3/uL (4.4-10.8)
[2021-07-22 07:10] LABS: Potassium 3.8 mmol/L (3.5-5.1)
[2021-07-22 07:21] LABS: Albumin 2.3 g/dL (3.4-5.0); Bilirubin, Total 0.7 mg/dL (0.2-1.0); Calcium 8.9 mg/dL (8.5-10.1); Total Protein 6.2 g/dL (6.4-8.2)
[2021-07-22 09:00] VITALS: BP 133/67
[2021-07-22] MEDS ORDERED: ALBUAER3 IN (09:35)
[2021-07-22] MEDS ORDERED: DEX4T PO (09:35)
[2021-07-22] MEDS ORDERED: ASCO10003 PO (09:35)
[2021-07-22] MEDS ORDERED: CHOL1CAP47 PO (09:35)
[2021-07-22] MEDS: sulfaSALAzine 500 MG TAB PO SCH ×2 (10:02→22:31)
[2021-07-22] MEDS: ASCORBIC ACID 1,000 MG TAB PO SCH (10:02)
[2021-07-22] MEDS: DexAMETHasone SOD PHOS 10MG/1ML VIAL INJ IV SCH (10:02)
[2021-07-22] MEDS: HCTZ 25 MG TAB PO SCH (10:02)
[2021-07-22] MEDS: ZINC SULFATE 220mg CAP or TAB PO SCH (10:02)
[2021-07-22] MEDS: CHOLECALCIFEROL (VITD3) 2,000 UNIT CAP/TAB PO SCH (10:03)
[2021-07-22 12:37] VITALS: BP 124/73
[2021-07-22] MEDS ORDERED: IOHEXOL 350 MG/ML 100ML IJ ONE (14:47)
[2021-07-22] MEDS ORDERED: diphenhdrAMINE HCL 25 MG CAP PO ONE ×2 (15:45→16:45)
[2021-07-22 16:37] VITALS: BP 109/71
[2021-07-22] MEDS: ALBUTEROL SULF HFA 90MCG INH 200DOSE IN PRN (19:57)
[2021-07-22 20:00] VITALS: BP 114/73
[2021-07-22] MEDS ORDERED: predniSONE 20 MG TAB PO ONE (20:00)
[2021-07-22 22:00] VITALS: BP 114/73
[2021-07-22] MEDS ORDERED: sulfaSALAzine 500 MG TAB PO ONE (22:15)
[2021-07-22] MEDS: ATORVASTATIN 20 MG TAB PO SCH (22:29)
[2021-07-22] MEDS: ENOXAPARIN SOD 40 MG/0.4 ML SYRINGE SC SCH (22:32)
[2021-07-23] MEDS ORDERED: predniSONE 20 MG TAB PO ONE ×2 (03:00→08:00)
[2021-07-23 05:00] VITALS: BP 132/70
[2021-07-23 06:06] LABS: Basophils # (auto) 0 10 ^3/uL (0-0.2); Basophils % (auto) 0.3 % (0.0-2.0); Eosinophils # (auto) 0 10 ^3/uL (0-0.8); Hematocrit 41.8 % (41.0-53.0); Hemoglobin 14.7 g/dL (13.5-17.5); Lymphocytes # (auto) 0.5 10 ^3/uL (0.4-5.4); Lymphocytes % (auto) 6.3 % (10.0-50.0); Mean Corpuscular Hemoglobin 31.1 pg (28.0-32.0); Mean Corpuscular Hgb Conc. 35.2 g/dL (32.0-36.0); Mean Corpuscular Volume 88.5 fL (80.0-100.0); Monocytes # (auto) 0.4 10 ^3/uL (0-1.3); Monocytes % (auto) 5.2 % (0.0-12.0); Neutrophils # (auto) 7.1 10 ^3/uL (1.6-8.6); Neutrophils % (auto) 88.2 % (37.0-80.0); Nucleated Red Blood Cells % 0.1 %; Red Blood Cells 4.73 10^6/uL (4.5-5.90); Red Cell Distribution Width 13.8 % (11.8-14.3)
[2021-07-23] MEDS: SALINE 0.65 % NASAL SPRAY 45ML BOTTLE EACHNOSTRI SCH ×3 (06:29→21:41)
[2021-07-23] MEDS: ACCU-CHEK COMFORT CURVE STRIP VI SCH ×4 (06:29→21:42)
[2021-07-23] MEDS: GABAPENTIN 300 MG CAP PO SCH ×3 (06:29→21:38)
[2021-07-23] MEDS: InsuLIN REG 1unit/0.01ml Soln (100units/ml) SC SCH ×4 (06:30→21:41)
[2021-07-23 06:32] LABS: Albumin 2.4 g/dL (3.4-5.0); Calcium 9.1 mg/dL (8.5-10.1)
[2021-07-23 06:37] LABS: Bilirubin, Total 0.7 mg/dL (0.2-1.0); Total Protein 6.4 g/dL (6.4-8.2)
[2021-07-23] MEDS: ALBUTEROL SULF HFA 90MCG INH 200DOSE IN PRN ×2 (07:54→21:51)
[2021-07-23 08:00] VITALS: BP 113/70
[2021-07-23] MEDS ORDERED: diphenhdrAMINE HCL 25 MG CAP PO ONE (08:00)
[2021-07-23] MEDS ORDERED: IOHEXOL 350 MG/ML 100ML IJ ONE (08:13)
[2021-07-23] MEDS: ZINC SULFATE 220mg CAP or TAB PO SCH (08:20)
[2021-07-23] MEDS: HCTZ 25 MG TAB PO SCH (08:20)
[2021-07-23] MEDS: DexAMETHasone SOD PHOS 10MG/1ML VIAL INJ IV SCH (08:20)
[2021-07-23] MEDS: sulfaSALAzine 500 MG TAB PO SCH ×2 (08:20→21:39)
[2021-07-23] MEDS: ASCORBIC ACID 1,000 MG TAB PO SCH (08:21)
[2021-07-23] MEDS: CHOLECALCIFEROL (VITD3) 2,000 UNIT CAP/TAB PO SCH (08:21)
[2021-07-23] MEDS: ENOXAPARIN SOD 40 MG/0.4 ML SYRINGE SC SCH ×2 (08:22→21:40)
[2021-07-23 13:00] VITALS: BP 124/77
[2021-07-23 20:00] VITALS: BP 112/67
[2021-07-23] MEDS: ATORVASTATIN 20 MG TAB PO SCH (21:40)
[2021-07-23 22:00] VITALS: BP 112/67
[2021-07-24 05:00] VITALS: BP 116/58
[2021-07-24 06:21] LABS: Basophils # (auto) 0 10 ^3/uL (0-0.2); Basophils % (auto) 0.2 % (0.0-2.0); Eosinophils # (auto) 0 10 ^3/uL (0-0.8); Eosinophils % (auto) 0.1 % (0.0-7.0); Hematocrit 43.4 % (41.0-53.0); Hemoglobin 14.8 g/dL (13.5-17.5); Lymphocytes # (auto) 0.9 10 ^3/uL (0.4-5.4); Lymphocytes % (auto) 8.8 % (10.0-50.0); Mean Corpuscular Hemoglobin 30.5 pg (28.0-32.0); Mean Corpuscular Volume 89.7 fL (80.0-100.0); Monocytes # (auto) 0.8 10 ^3/uL (0-1.3); Monocytes % (auto) 7.3 % (0.0-12.0); Neutrophils % (auto) 83.6 % (37.0-80.0); Nucleated Red Blood Cells % 0.2 %; Red Blood Cells 4.84 10^6/uL (4.5-5.90); White Blood Cell 10.7 10^3/uL (4.4-10.8)
[2021-07-24] MEDS: GABAPENTIN 300 MG CAP PO SCH ×3 (06:35→22:56)
[2021-07-24] MEDS: SALINE 0.65 % NASAL SPRAY 45ML BOTTLE EACHNOSTRI SCH ×3 (06:35→22:00)
[2021-07-24] MEDS: ACCU-CHEK COMFORT CURVE STRIP VI SCH ×4 (06:35→22:58)
[2021-07-24 06:39] LABS: Albumin 2.4 g/dL (3.4-5.0); Potassium 3.5 mmol/L (3.5-5.1)
[2021-07-24 06:40] LABS: BUN/Creatinine Ratio 34.8
[2021-07-24] MEDS: InsuLIN REG 1unit/0.01ml Soln (100units/ml) SC SCH ×4 (06:43→22:00)
[2021-07-24 06:53] LABS: Bilirubin, Total 0.7 mg/dL (0.2-1.0); Total Protein 6.5 g/dL (6.4-8.2)
[2021-07-24 09:09] VITALS: BP 112/68
[2021-07-24] MEDS: ZINC SULFATE 220mg CAP or TAB PO SCH ×2 (09:14→09:23)
[2021-07-24] MEDS: sulfaSALAzine 500 MG TAB PO SCH ×2 (09:14→22:57)
[2021-07-24] MEDS: CHOLECALCIFEROL (VITD3) 2,000 UNIT CAP/TAB PO SCH (09:15)
[2021-07-24] MEDS: HCTZ 25 MG TAB PO SCH (09:16)
[2021-07-24] MEDS: DexAMETHasone SOD PHOS 10MG/1ML VIAL INJ IV SCH (09:22)
[2021-07-24] MEDS: ENOXAPARIN SOD 40 MG/0.4 ML SYRINGE SC SCH ×2 (09:23→22:57)
[2021-07-24] MEDS: ASCORBIC ACID 1,000 MG TAB PO SCH (09:23)
[2021-07-24 13:22] VITALS: BP 137/87
[2021-07-24] MEDS: ALBUTEROL SULF HFA 90MCG INH 200DOSE IN PRN (20:50)
[2021-07-24 22:00] VITALS: BP 113/72
[2021-07-24] MEDS: ATORVASTATIN 20 MG TAB PO SCH (22:56)
[2021-07-25 05:00] VITALS: BP 110/66
[2021-07-25] MEDS: InsuLIN REG 1unit/0.01ml Soln (100units/ml) SC SCH ×4 (07:00→22:30)
[2021-07-25] MEDS: GABAPENTIN 300 MG CAP PO SCH ×3 (07:01→22:27)
[2021-07-25] MEDS: SALINE 0.65 % NASAL SPRAY 45ML BOTTLE EACHNOSTRI SCH ×3 (07:01→22:31)
[2021-07-25] MEDS: ACCU-CHEK COMFORT CURVE STRIP VI SCH ×4 (07:02→22:33)
[2021-07-25 07:15] LABS: Basophils # (auto) 0 10 ^3/uL (0-0.2); Basophils % (auto) 0.4 % (0.0-2.0); Eosinophils # (auto) 0 10 ^3/uL (0-0.8); Eosinophils % (auto) 0.3 % (0.0-7.0); Hematocrit 44.9 % (41.0-53.0); Hemoglobin 14.9 g/dL (13.5-17.5); Lymphocytes # (auto) 0.8 10 ^3/uL (0.4-5.4); Lymphocytes % (auto) 8.2 % (10.0-50.0); Mean Corpuscular Hemoglobin 30.2 pg (28.0-32.0); Mean Corpuscular Hgb Conc. 33.3 g/dL (32.0-36.0); Mean Corpuscular Volume 90.7 fL (80.0-100.0); Monocytes # (auto) 0.8 10 ^3/uL (0-1.3); Monocytes % (auto) 7.5 % (0.0-12.0); Neutrophils # (auto) 8.4 10 ^3/uL (1.6-8.6); Neutrophils % (auto) 83.6 % (37.0-80.0); Red Blood Cells 4.95 10^6/uL (4.5-5.90); Red Cell Distribution Width 14.2 % (11.8-14.3)
[2021-07-25 07:30] LABS: Potassium 4.3 mmol/L (3.5-5.1)
[2021-07-25 07:45] LABS: Albumin 2.2 g/dL (3.4-5.0); BUN/Creatinine Ratio 43.9; Calcium 9.2 mg/dL (8.5-10.1)
[2021-07-25 07:46] LABS: Bilirubin, Total 1.1 mg/dL (0.2-1.0); Total Protein 6.6 g/dL (6.4-8.2)
[2021-07-25 09:00] VITALS: BP 125/95
[2021-07-25] MEDS: CHOLECALCIFEROL (VITD3) 2,000 UNIT CAP/TAB PO SCH (10:22)
[2021-07-25] MEDS: ENOXAPARIN SOD 40 MG/0.4 ML SYRINGE SC SCH ×2 (10:23→22:28)
[2021-07-25] MEDS: ACETAMINOPHEN 500 MG TAB PO PRN ×2 (10:23→22:42)
[2021-07-25] MEDS: ASCORBIC ACID 1,000 MG TAB PO SCH (10:24)
[2021-07-25] MEDS: DexAMETHasone SOD PHOS 10MG/1ML VIAL INJ IV SCH (10:24)
[2021-07-25] MEDS: ZINC SULFATE 220mg CAP or TAB PO SCH (10:24)
[2021-07-25] MEDS: HCTZ 25 MG TAB PO SCH (10:26)
[2021-07-25] MEDS: sulfaSALAzine 500 MG TAB PO SCH ×2 (10:50→22:27)
[2021-07-25 13:00] VITALS: BP 117/63
[2021-07-25 17:00] VITALS: BP 120/74
[2021-07-25 20:17] VITALS: BP 103/77
[2021-07-25] MEDS: ATORVASTATIN 20 MG TAB PO SCH (22:28)
[2021-07-26] MEDS: ALBUTEROL SULF HFA 90MCG INH 200DOSE IN PRN ×2 (00:10→16:29)
[2021-07-26 04:39] VITALS: BP 95/52
[2021-07-26 06:02] LABS: Basophils # (auto) 0 10 ^3/uL (0-0.2); Basophils % (auto) 0.3 % (0.0-2.0); Eosinophils # (auto) 0 10 ^3/uL (0-0.8); Eosinophils % (auto) 0.5 % (0.0-7.0); Hemoglobin 13.9 g/dL (13.5-17.5); Lymphocytes # (auto) 0.9 10 ^3/uL (0.4-5.4); Lymphocytes % (auto) 10.7 % (10.0-50.0); Mean Corpuscular Hemoglobin 30.5 pg (28.0-32.0); Mean Corpuscular Hgb Conc. 33.9 g/dL (32.0-36.0); Mean Corpuscular Volume 89.8 fL (80.0-100.0); Monocytes # (auto) 0.5 10 ^3/uL (0-1.3); Monocytes % (auto) 6.8 % (0.0-12.0); Neutrophils # (auto) 6.5 10 ^3/uL (1.6-8.6); Neutrophils % (auto) 81.7 % (37.0-80.0); Red Blood Cells 4.57 10^6/uL (4.5-5.90); Red Cell Distribution Width 13.7 % (11.8-14.3)
[2021-07-26 06:31] LABS: Potassium 3.4 mmol/L (3.5-5.1)
[2021-07-26] MEDS: InsuLIN REG 1unit/0.01ml Soln (100units/ml) SC SCH ×4 (06:33→22:26)
[2021-07-26] MEDS: GABAPENTIN 300 MG CAP PO SCH ×3 (06:33→21:46)
[2021-07-26] MEDS: SALINE 0.65 % NASAL SPRAY 45ML BOTTLE EACHNOSTRI SCH ×3 (06:35→21:41)
[2021-07-26] MEDS: ACCU-CHEK COMFORT CURVE STRIP VI SCH ×4 (06:36→22:25)
[2021-07-26 06:39] LABS: Albumin 2.2 g/dL (3.4-5.0); BUN/Creatinine Ratio 62.9; Bilirubin, Total 0.6 mg/dL (0.2-1.0); Calcium 8.7 mg/dL (8.5-10.1); Total Protein 6.3 g/dL (6.4-8.2)
[2021-07-26 09:00] VITALS: BP 127/108
[2021-07-26] MEDS: sulfaSALAzine 500 MG TAB PO SCH ×2 (10:09→21:42)
[2021-07-26] MEDS: CHOLECALCIFEROL (VITD3) 2,000 UNIT CAP/TAB PO SCH (10:09)
[2021-07-26] MEDS: HCTZ 25 MG TAB PO SCH (10:10)
[2021-07-26] MEDS: ASCORBIC ACID 1,000 MG TAB PO SCH (10:11)
[2021-07-26] MEDS: ZINC SULFATE 220mg CAP or TAB PO SCH (10:11)
[2021-07-26] MEDS: ACETAMINOPHEN 500 MG TAB PO PRN (10:11)
[2021-07-26] MEDS: DexAMETHasone SOD PHOS 10MG/1ML VIAL INJ IV SCH (10:11)
[2021-07-26] MEDS: ENOXAPARIN SOD 40 MG/0.4 ML SYRINGE SC SCH ×2 (10:12→21:47)
[2021-07-26 13:00] VITALS: BP 118/67
[2021-07-26 21:00] VITALS: BP 115/76
[2021-07-26] MEDS: ATORVASTATIN 20 MG TAB PO SCH (21:42)
[2021-07-27 04:30] VITALS: BP 104/46
[2021-07-27] MEDS: SALINE 0.65 % NASAL SPRAY 45ML BOTTLE EACHNOSTRI SCH ×3 (06:36→22:47)
[2021-07-27] MEDS: GABAPENTIN 300 MG CAP PO SCH ×3 (06:37→22:48)
[2021-07-27] MEDS: InsuLIN REG 1unit/0.01ml Soln (100units/ml) SC SCH ×4 (06:38→22:50)
[2021-07-27] MEDS: ACCU-CHEK COMFORT CURVE STRIP VI SCH ×4 (06:38→22:48)
[2021-07-27] MEDS: ALBUTEROL SULF HFA 90MCG INH 200DOSE IN PRN ×2 (08:22→21:06)
[2021-07-27 09:00] VITALS: BP 133/78
[2021-07-27] MEDS: ZINC SULFATE 220mg CAP or TAB PO SCH (10:43)
[2021-07-27] MEDS: HCTZ 25 MG TAB PO SCH (10:43)
[2021-07-27] MEDS: DexAMETHasone SOD PHOS 10MG/1ML VIAL INJ IV SCH (10:43)
[2021-07-27] MEDS: sulfaSALAzine 500 MG TAB PO SCH ×2 (10:43→22:47)
[2021-07-27] MEDS: CHOLECALCIFEROL (VITD3) 2,000 UNIT CAP/TAB PO SCH (10:44)
[2021-07-27] MEDS: ASCORBIC ACID 1,000 MG TAB PO SCH (10:44)
[2021-07-27] MEDS: ENOXAPARIN SOD 40 MG/0.4 ML SYRINGE SC SCH ×2 (10:45→22:48)
[2021-07-27 10:58] LABS: Basophils # (auto) 0 10 ^3/uL (0-0.2); Basophils % (auto) 0.1 % (0.0-2.0); Eosinophils # (auto) 0 10 ^3/uL (0-0.8); Eosinophils % (auto) 0.6 % (0.0-7.0); Hematocrit 42.7 % (41.0-53.0); Hemoglobin 14.5 g/dL (13.5-17.5); Lymphocytes # (auto) 0.5 10 ^3/uL (0.4-5.4); Lymphocytes % (auto) 7.1 % (10.0-50.0); Mean Corpuscular Hemoglobin 30.4 pg (28.0-32.0); Mean Corpuscular Hgb Conc. 33.8 g/dL (32.0-36.0); Mean Corpuscular Volume 89.9 fL (80.0-100.0); Monocytes # (auto) 0.5 10 ^3/uL (0-1.3); Monocytes % (auto) 6.6 % (0.0-12.0); Neutrophils # (auto) 5.9 10 ^3/uL (1.6-8.6); Neutrophils % (auto) 85.6 % (37.0-80.0); Nucleated Red Blood Cells % 0.2 %; Red Blood Cells 4.75 10^6/uL (4.5-5.90); Red Cell Distribution Width 13.7 % (11.8-14.3); White Blood Cell 6.9 10^3/uL (4.4-10.8)
[2021-07-27 11:01] LABS: Albumin 2.3 g/dL (3.4-5.0); Calcium 8.8 mg/dL (8.5-10.1); Potassium 3.7 mmol/L (3.5-5.1)
[2021-07-27 11:06] LABS: BUN/Creatinine Ratio 32.9; Bilirubin, Total 0.5 mg/dL (0.2-1.0); Total Protein 6.7 g/dL (6.4-8.2)
[2021-07-27 21:49] VITALS: BP 102/61
[2021-07-27] MEDS: ATORVASTATIN 20 MG TAB PO SCH (22:47)
[2021-07-28] MEDS: ALPRAZolam 0.25 MG TAB PO PRN ×3 (02:08→21:05)
[2021-07-28 05:00] VITALS: BP 114/61
[2021-07-28] MEDS: SALINE 0.65 % NASAL SPRAY 45ML BOTTLE EACHNOSTRI SCH ×3 (06:35→21:03)
[2021-07-28] MEDS: ACCU-CHEK COMFORT CURVE STRIP VI SCH ×4 (06:35→22:17)
[2021-07-28] MEDS: GABAPENTIN 300 MG CAP PO SCH ×3 (06:35→21:04)
[2021-07-28] MEDS: InsuLIN REG 1unit/0.01ml Soln (100units/ml) SC SCH ×4 (06:36→22:18)
[2021-07-28 08:08] LABS: Basophils # (auto) 0 10 ^3/uL (0-0.2); Basophils % (auto) 0.3 % (0.0-2.0); Eosinophils # (auto) 0 10 ^3/uL (0-0.8); Eosinophils % (auto) 0.4 % (0.0-7.0); Hematocrit 43.3 % (41.0-53.0); Lymphocytes # (auto) 0.6 10 ^3/uL (0.4-5.4); Lymphocytes % (auto) 7.7 % (10.0-50.0); Mean Corpuscular Hemoglobin 30.8 pg (28.0-32.0); Mean Corpuscular Hgb Conc. 34.6 g/dL (32.0-36.0); Mean Corpuscular Volume 88.8 fL (80.0-100.0); Monocytes # (auto) 0.7 10 ^3/uL (0-1.3); Monocytes % (auto) 8.3 % (0.0-12.0); Neutrophils # (auto) 6.8 10 ^3/uL (1.6-8.6); Neutrophils % (auto) 83.3 % (37.0-80.0); Red Blood Cells 4.87 10^6/uL (4.5-5.90); Red Cell Distribution Width 13.8 % (11.8-14.3); White Blood Cell 8.2 10^3/uL (4.4-10.8)
[2021-07-28 08:09] LABS: Potassium 3.5 mmol/L (3.5-5.1)
[2021-07-28 08:21] LABS: Albumin 2.4 g/dL (3.4-5.0); Bilirubin, Total 0.6 mg/dL (0.2-1.0); Calcium 9.1 mg/dL (8.5-10.1); Total Protein 6.9 g/dL (6.4-8.2)
[2021-07-28 09:00] VITALS: BP 123/66
[2021-07-28] MEDS: ZINC SULFATE 220mg CAP or TAB PO SCH (09:04)
[2021-07-28] MEDS: DexAMETHasone SOD PHOS 10MG/1ML VIAL INJ IV SCH (09:04)
[2021-07-28] MEDS: sulfaSALAzine 500 MG TAB PO SCH ×2 (09:04→21:03)
[2021-07-28] MEDS: CHOLECALCIFEROL (VITD3) 2,000 UNIT CAP/TAB PO SCH (09:05)
[2021-07-28] MEDS: ASCORBIC ACID 1,000 MG TAB PO SCH (09:05)
[2021-07-28] MEDS: ACETAMINOPHEN 500 MG TAB PO PRN (09:06)
[2021-07-28] MEDS: ENOXAPARIN SOD 40 MG/0.4 ML SYRINGE SC SCH ×2 (09:06→21:04)
[2021-07-28] MEDS: HCTZ 25 MG TAB PO SCH (09:24)
[2021-07-28] MEDS: ALBUTEROL SULF HFA 90MCG INH 200DOSE IN PRN (09:46)
[2021-07-28 13:00] VITALS: BP 126/72
[2021-07-28 17:00] VITALS: BP 138/71
[2021-07-28] MEDS: ATORVASTATIN 20 MG TAB PO SCH (21:04)
[2021-07-28 21:33] VITALS: BP 107/69
[2021-07-29 05:11] VITALS: BP 130/74
[2021-07-29] MEDS: SALINE 0.65 % NASAL SPRAY 45ML BOTTLE EACHNOSTRI SCH ×3 (06:02→23:21)
[2021-07-29] MEDS: GABAPENTIN 300 MG CAP PO SCH ×3 (06:03→23:22)
[2021-07-29] MEDS: ACETAMINOPHEN 500 MG TAB PO PRN ×2 (06:04→09:21)
[2021-07-29] MEDS: ACCU-CHEK COMFORT CURVE STRIP VI SCH ×4 (06:30→23:23)
[2021-07-29] MEDS: InsuLIN REG 1unit/0.01ml Soln (100units/ml) SC SCH ×4 (06:30→22:00)
[2021-07-29 07:10] LABS: Basophils # (auto) 0 10 ^3/uL (0-0.2); Basophils % (auto) 0.1 % (0.0-2.0); Eosinophils # (auto) 0 10 ^3/uL (0-0.8); Eosinophils % (auto) 0.3 % (0.0-7.0); Hematocrit 44.1 % (41.0-53.0); Hemoglobin 15.1 g/dL (13.5-17.5); Lymphocytes # (auto) 0.6 10 ^3/uL (0.4-5.4); Lymphocytes % (auto) 6.6 % (10.0-50.0); Mean Corpuscular Hemoglobin 30.7 pg (28.0-32.0); Mean Corpuscular Hgb Conc. 34.3 g/dL (32.0-36.0); Mean Corpuscular Volume 89.6 fL (80.0-100.0); Monocytes # (auto) 0.7 10 ^3/uL (0-1.3); Monocytes % (auto) 7.4 % (0.0-12.0); Neutrophils # (auto) 7.8 10 ^3/uL (1.6-8.6); Neutrophils % (auto) 85.6 % (37.0-80.0); Red Blood Cells 4.92 10^6/uL (4.5-5.90); Red Cell Distribution Width 13.5 % (11.8-14.3); White Blood Cell 9.1 10^3/uL (4.4-10.8)
[2021-07-29 07:22] LABS: Albumin 2.4 g/dL (3.4-5.0); Calcium 8.8 mg/dL (8.5-10.1); Potassium 3.8 mmol/L (3.5-5.1)
[2021-07-29 07:26] LABS: BUN/Creatinine Ratio 37.7; Bilirubin, Total 0.6 mg/dL (0.2-1.0); Total Protein 6.8 g/dL (6.4-8.2)
[2021-07-29] MEDS: DexAMETHasone SOD PHOS 10MG/1ML VIAL INJ IV SCH (09:03)
[2021-07-29] MEDS: sulfaSALAzine 500 MG TAB PO SCH ×2 (09:04→22:00)
[2021-07-29] MEDS: ZINC SULFATE 220mg CAP or TAB PO SCH (09:04)
[2021-07-29] MEDS: ENOXAPARIN SOD 40 MG/0.4 ML SYRINGE SC SCH ×2 (09:06→23:23)
[2021-07-29] MEDS: ASCORBIC ACID 1,000 MG TAB PO SCH (09:06)
[2021-07-29] MEDS: CHOLECALCIFEROL (VITD3) 2,000 UNIT CAP/TAB PO SCH (09:06)
[2021-07-29] MEDS: HCTZ 25 MG TAB PO SCH (09:20)
[2021-07-29] MEDS: ALPRAZolam 0.25 MG TAB PO PRN (09:21)
[2021-07-29] MEDS: ALBUTEROL SULF HFA 90MCG INH 200DOSE IN PRN ×2 (11:36→19:21)
[2021-07-29 20:15] VITALS: BP 116/69
[2021-07-29 22:00] VITALS: BP 116/69
[2021-07-29] MEDS: ATORVASTATIN 20 MG TAB PO SCH (23:22)
[2021-07-30 05:00] VITALS: BP 127/80
[2021-07-30] MEDS: ALBUTEROL SULF HFA 90MCG INH 200DOSE IN PRN ×2 (06:07→19:53)
[2021-07-30] MEDS: SALINE 0.65 % NASAL SPRAY 45ML BOTTLE EACHNOSTRI SCH ×3 (06:37→22:29)
[2021-07-30] MEDS: GABAPENTIN 300 MG CAP PO SCH ×3 (06:38→22:24)
[2021-07-30] MEDS: ACCU-CHEK COMFORT CURVE STRIP VI SCH ×4 (06:38→22:25)
[2021-07-30] MEDS: InsuLIN REG 1unit/0.01ml Soln (100units/ml) SC SCH ×4 (06:38→22:26)
[2021-07-30 07:23] LABS: Albumin 2.1 g/dL (3.4-5.0); Anion Gap 6 (5-15); BUN/Creatinine Ratio 37.5; Blood Urea Nitrogen 24 mg/dL (7-18); Calcium 8.6 mg/dL (8.5-10.1); Carbon Dioxide 29 mmol/L (21-32); Chloride 101 mmol/L (98-107); GFR African American 160 mL/min; GFR Non-African American 132 mL/min; Glucose 118 mg/dL (74-106); Potassium 4.2 mmol/L (3.5-5.1); Sodium 136 mmol/L (136-145)
[2021-07-30 07:27] LABS: Alanine Aminotransferase 263 U/L (16-61); Alkaline Phosphatase 131 U/L (45-117); Aspartate Aminotransferase 84 U/L (15-37); Bilirubin, Total 0.6 mg/dL (0.2-1.0); Total Protein 6.7 g/dL (6.4-8.2)
[2021-07-30 09:00] VITALS: BP 133/76
[2021-07-30] MEDS: DexAMETHasone SOD PHOS 10MG/1ML VIAL INJ IV SCH (09:09)
[2021-07-30] MEDS: ZINC SULFATE 220mg CAP or TAB PO SCH (09:09)
[2021-07-30] MEDS: HCTZ 25 MG TAB PO SCH (09:09)
[2021-07-30] MEDS: ENOXAPARIN SOD 40 MG/0.4 ML SYRINGE SC SCH ×2 (09:12→22:24)
[2021-07-30] MEDS: CHOLECALCIFEROL (VITD3) 2,000 UNIT CAP/TAB PO SCH (09:12)
[2021-07-30] MEDS: ALPRAZolam 0.25 MG TAB PO PRN (09:12)
[2021-07-30] MEDS: ASCORBIC ACID 1,000 MG TAB PO SCH (09:12)
[2021-07-30] MEDS: sulfaSALAzine 500 MG TAB PO SCH (10:00)
[2021-07-30] MEDS: ACETAMINOPHEN 500 MG TAB PO PRN (12:03)
[2021-07-30 15:25] VITALS: BP 129/62
[2021-07-30 15:55] LABS: Basophils # (auto) 0 10 ^3/uL (0-0.2); Basophils % (auto) 0.4 % (0.0-2.0); Eosinophils # (auto) 0 10 ^3/uL (0-0.8); Eosinophils % (auto) 0.2 % (0.0-7.0); Hematocrit 42.1 % (41.0-53.0); Hemoglobin 14.4 g/dL (13.5-17.5); Lymphocytes # (auto) 0.5 10 ^3/uL (0.4-5.4); Lymphocytes % (auto) 6.5 % (10.0-50.0); Mean Corpuscular Hemoglobin 30.2 pg (28.0-32.0); Mean Corpuscular Hgb Conc. 34.1 g/dL (32.0-36.0); Mean Corpuscular Volume 88.7 fL (80.0-100.0); Monocytes # (auto) 0.5 10 ^3/uL (0-1.3); Monocytes % (auto) 6.4 % (0.0-12.0); Neutrophils # (auto) 6.8 10 ^3/uL (1.6-8.6); Neutrophils % (auto) 86.5 % (37.0-80.0); Nucleated Red Blood Cells % 0.7 %; Red Blood Cells 4.75 10^6/uL (4.5-5.90); Red Cell Distribution Width 13.6 % (11.8-14.3); White Blood Cell 7.9 10^3/uL (4.4-10.8)
[2021-07-30 18:17] VITALS: BP 127/84
[2021-07-30 20:15] VITALS: BP 121/78
[2021-07-30] MEDS: ATORVASTATIN 20 MG TAB PO SCH (22:24)
[2021-07-31 04:54] VITALS: BP_SYST 108; BP_SYST 133; BP_DIAS 48; BP_DIAS 78
[2021-07-31] MEDS: SALINE 0.65 % NASAL SPRAY 45ML BOTTLE EACHNOSTRI SCH ×3 (06:40→22:25)
[2021-07-31] MEDS: ACCU-CHEK COMFORT CURVE STRIP VI SCH ×4 (06:40→22:14)
[2021-07-31] MEDS: ALPRAZolam 0.25 MG TAB PO PRN ×2 (06:41→23:47)
[2021-07-31] MEDS: InsuLIN REG 1unit/0.01ml Soln (100units/ml) SC SCH ×4 (06:42→22:24)
[2021-07-31] MEDS: GABAPENTIN 300 MG CAP PO SCH ×3 (06:42→22:13)
[2021-07-31 08:00] VITALS: BP 129/67
[2021-07-31] MEDS: ZINC SULFATE 220mg CAP or TAB PO SCH (09:05)
[2021-07-31] MEDS: DexAMETHasone SOD PHOS 10MG/1ML VIAL INJ IV SCH (09:05)
[2021-07-31] MEDS: HCTZ 25 MG TAB PO SCH (09:06)
[2021-07-31] MEDS: ASCORBIC ACID 1,000 MG TAB PO SCH (09:07)
[2021-07-31] MEDS: CHOLECALCIFEROL (VITD3) 2,000 UNIT CAP/TAB PO SCH (09:07)
[2021-07-31] MEDS: ENOXAPARIN SOD 40 MG/0.4 ML SYRINGE SC SCH ×2 (09:07→22:14)
[2021-07-31 11:22] VITALS: BP 145/83
[2021-07-31 12:00] VITALS: BP 145/83
[2021-07-31 15:43] LABS: Basophils # (auto) 0 10 ^3/uL (0-0.2); Basophils % (auto) 0.2 % (0.0-2.0); Eosinophils # (auto) 0 10 ^3/uL (0-0.8); Hematocrit 44.9 % (41.0-53.0); Hemoglobin 15.2 g/dL (13.5-17.5); Lymphocytes # (auto) 0.8 10 ^3/uL (0.4-5.4); Lymphocytes % (auto) 7.6 % (10.0-50.0); Mean Corpuscular Hemoglobin 30.2 pg (28.0-32.0); Mean Corpuscular Hgb Conc. 33.9 g/dL (32.0-36.0); Mean Corpuscular Volume 89.1 fL (80.0-100.0); Monocytes # (auto) 0.5 10 ^3/uL (0-1.3); Monocytes % (auto) 5.2 % (0.0-12.0); Neutrophils # (auto) 8.9 10 ^3/uL (1.6-8.6); Nucleated Red Blood Cells % 0.1 %; Red Blood Cells 5.04 10^6/uL (4.5-5.90); Red Cell Distribution Width 13.6 % (11.8-14.3); White Blood Cell 10.3 10^3/uL (4.4-10.8)
[2021-07-31 15:56] VITALS: BP 114/65
[2021-07-31 15:57] LABS: Albumin 2.4 g/dL (3.4-5.0); Potassium 4.2 mmol/L (3.5-5.1)
[2021-07-31 16:01] LABS: Bilirubin, Total 0.5 mg/dL (0.2-1.0); Total Protein 7.2 g/dL (6.4-8.2)
[2021-07-31 16:32] LABS: BUN/Creatinine Ratio 36.4
[2021-07-31 22:00] VITALS: BP 134/75
[2021-07-31] MEDS: ATORVASTATIN 20 MG TAB PO SCH (22:13)
[2021-08-01 05:00] VITALS: BP 140/77
[2021-08-01] MEDS: ALBUTEROL SULF HFA 90MCG INH 200DOSE IN PRN ×2 (06:00→20:15)
[2021-08-01] MEDS: ACCU-CHEK COMFORT CURVE STRIP VI SCH ×4 (06:18→22:01)
[2021-08-01] MEDS: InsuLIN REG 1unit/0.01ml Soln (100units/ml) SC SCH ×4 (06:18→22:03)
[2021-08-01] MEDS: GABAPENTIN 300 MG CAP PO SCH ×3 (06:19→22:01)
[2021-08-01] MEDS: SALINE 0.65 % NASAL SPRAY 45ML BOTTLE EACHNOSTRI SCH ×3 (06:19→22:01)
[2021-08-01 07:48] LABS: Basophils # (auto) 0 10 ^3/uL (0-0.2); Basophils % (auto) 0.4 % (0.0-2.0); Eosinophils # (auto) 0.1 10 ^3/uL (0-0.8); Eosinophils % (auto) 0.9 % (0.0-7.0); Hematocrit 42.8 % (41.0-53.0); Hemoglobin 14.5 g/dL (13.5-17.5); Lymphocytes % (auto) 9.5 % (10.0-50.0); Mean Corpuscular Hemoglobin 30.1 pg (28.0-32.0); Mean Corpuscular Volume 88.6 fL (80.0-100.0); Monocytes # (auto) 0.8 10 ^3/uL (0-1.3); Monocytes % (auto) 7.9 % (0.0-12.0); Neutrophils # (auto) 8.3 10 ^3/uL (1.6-8.6); Neutrophils % (auto) 81.3 % (37.0-80.0); Red Blood Cells 4.84 10^6/uL (4.5-5.90); Red Cell Distribution Width 13.7 % (11.8-14.3); White Blood Cell 10.2 10^3/uL (4.4-10.8)
[2021-08-01 08:04] LABS: Potassium 3.8 mmol/L (3.5-5.1)
[2021-08-01 08:11] LABS: Albumin 2.3 g/dL (3.4-5.0); BUN/Creatinine Ratio 48.2; Bilirubin, Total 0.7 mg/dL (0.2-1.0)
[2021-08-01 08:41] VITALS: BP 114/68
[2021-08-01] MEDS: ENOXAPARIN SOD 40 MG/0.4 ML SYRINGE SC SCH ×2 (10:27→22:01)
[2021-08-01] MEDS: CHOLECALCIFEROL (VITD3) 2,000 UNIT CAP/TAB PO SCH (10:27)
[2021-08-01] MEDS: DexAMETHasone SOD PHOS 10MG/1ML VIAL INJ IV SCH (10:27)
[2021-08-01] MEDS: ASCORBIC ACID 1,000 MG TAB PO SCH (10:27)
[2021-08-01] MEDS: ZINC SULFATE 220mg CAP or TAB PO SCH (10:27)
[2021-08-01] MEDS: HCTZ 25 MG TAB PO SCH (10:28)
[2021-08-01] MEDS: ALPRAZolam 0.25 MG TAB PO PRN ×2 (11:35→19:44)
[2021-08-01 12:50] VITALS: BP 109/61
[2021-08-01 17:00] VITALS: BP 120/70
[2021-08-01 20:00] VITALS: BP 121/72
[2021-08-01 22:00] VITALS: BP 121/72
[2021-08-01] MEDS: ATORVASTATIN 20 MG TAB PO SCH (22:01)
[2021-08-02 05:00] VITALS: BP 118/76
[2021-08-02] MEDS: GABAPENTIN 300 MG CAP PO SCH ×3 (06:08→21:51)
[2021-08-02] MEDS: SALINE 0.65 % NASAL SPRAY 45ML BOTTLE EACHNOSTRI SCH ×3 (06:08→21:50)
[2021-08-02] MEDS: InsuLIN REG 1unit/0.01ml Soln (100units/ml) SC SCH ×4 (06:26→21:51)
[2021-08-02] MEDS: ACCU-CHEK COMFORT CURVE STRIP VI SCH ×4 (06:26→21:51)
[2021-08-02 06:48] LABS: Basophils # (auto) 0 10 ^3/uL (0-0.2); Basophils % (auto) 0.3 % (0.0-2.0); Eosinophils # (auto) 0.1 10 ^3/uL (0-0.8); Eosinophils % (auto) 1.5 % (0.0-7.0); Hematocrit 40.5 % (41.0-53.0); Hemoglobin 13.9 g/dL (13.5-17.5); Lymphocytes # (auto) 1.2 10 ^3/uL (0.4-5.4); Mean Corpuscular Hemoglobin 30.5 pg (28.0-32.0); Mean Corpuscular Hgb Conc. 34.3 g/dL (32.0-36.0); Mean Corpuscular Volume 89.1 fL (80.0-100.0); Monocytes # (auto) 0.6 10 ^3/uL (0-1.3); Monocytes % (auto) 6.8 % (0.0-12.0); Neutrophils # (auto) 6.9 10 ^3/uL (1.6-8.6); Neutrophils % (auto) 77.4 % (37.0-80.0); Nucleated Red Blood Cells % 0.1 %; Red Blood Cells 4.55 10^6/uL (4.5-5.90); Red Cell Distribution Width 13.8 % (11.8-14.3); White Blood Cell 8.9 10^3/uL (4.4-10.8)
[2021-08-02 07:00] LABS: Albumin 2.2 g/dL (3.4-5.0); Calcium 9.1 mg/dL (8.5-10.1); Potassium 3.5 mmol/L (3.5-5.1)
[2021-08-02 07:03] LABS: Bilirubin, Total 0.5 mg/dL (0.2-1.0); Total Protein 6.7 g/dL (6.4-8.2)
[2021-08-02 09:02] VITALS: BP 118/67
[2021-08-02] MEDS: DexAMETHasone SOD PHOS 10MG/1ML VIAL INJ IV SCH (09:58)
[2021-08-02] MEDS: HCTZ 25 MG TAB PO SCH (09:58)
[2021-08-02] MEDS: ASCORBIC ACID 1,000 MG TAB PO SCH (09:58)
[2021-08-02] MEDS: ZINC SULFATE 220mg CAP or TAB PO SCH (09:58)
[2021-08-02] MEDS: CHOLECALCIFEROL (VITD3) 2,000 UNIT CAP/TAB PO SCH (09:58)
[2021-08-02] MEDS: ENOXAPARIN SOD 40 MG/0.4 ML SYRINGE SC SCH ×2 (09:59→21:52)
[2021-08-02] MEDS: ALPRAZolam 0.25 MG TAB PO PRN (10:35)
[2021-08-02 12:20] VITALS: BP_SYST 131; BP_SYST 163; BP_SYST 180; BP_DIAS 69; BP_DIAS 73; BP_DIAS 74
[2021-08-02 16:45] VITALS: BP 124/72
[2021-08-02 20:00] VITALS: BP 117/75
[2021-08-02] MEDS: ATORVASTATIN 20 MG TAB PO SCH (21:51)
[2021-08-02 21:59] VITALS: BP 117/75
[2021-08-03 05:00] VITALS: BP 129/71
[2021-08-03 05:45] LABS: Basophils # (auto) 0.1 10 ^3/uL (0-0.2); Basophils % (auto) 0.7 % (0.0-2.0); Eosinophils # (auto) 0.1 10 ^3/uL (0-0.8); Eosinophils % (auto) 1.2 % (0.0-7.0); Lymphocytes # (auto) 1.8 10 ^3/uL (0.4-5.4); Lymphocytes % (auto) 17.7 % (10.0-50.0); Mean Corpuscular Hemoglobin 30.6 pg (28.0-32.0); Mean Corpuscular Hgb Conc. 34.3 g/dL (32.0-36.0); Mean Corpuscular Volume 89.4 fL (80.0-100.0); Monocytes # (auto) 0.7 10 ^3/uL (0-1.3); Monocytes % (auto) 6.7 % (0.0-12.0); Neutrophils # (auto) 7.5 10 ^3/uL (1.6-8.6); Neutrophils % (auto) 73.7 % (37.0-80.0); Nucleated Red Blood Cells % 0.4 %; Red Blood Cells 4.25 10^6/uL (4.5-5.90); Red Cell Distribution Width 13.5 % (11.8-14.3); White Blood Cell 10.2 10^3/uL (4.4-10.8)
[2021-08-03] MEDS: ALBUTEROL SULF HFA 90MCG INH 200DOSE IN PRN ×2 (05:47→20:45)
[2021-08-03 05:59] LABS: Potassium 3.9 mmol/L (3.5-5.1)
[2021-08-03 06:19] LABS: Albumin 2.1 g/dL (3.4-5.0); BUN/Creatinine Ratio 41.5; Bilirubin, Total 0.5 mg/dL (0.2-1.0); Calcium 9.2 mg/dL (8.5-10.1); Total Protein 6.6 g/dL (6.4-8.2)
[2021-08-03] MEDS: GABAPENTIN 300 MG CAP PO SCH ×3 (06:42→21:43)
[2021-08-03] MEDS: ACCU-CHEK COMFORT CURVE STRIP VI SCH ×4 (06:42→21:44)
[2021-08-03] MEDS: SALINE 0.65 % NASAL SPRAY 45ML BOTTLE EACHNOSTRI SCH ×3 (06:42→21:43)
[2021-08-03] MEDS: InsuLIN REG 1unit/0.01ml Soln (100units/ml) SC SCH ×4 (06:43→21:44)
[2021-08-03 09:00] VITALS: BP 120/68
[2021-08-03] MEDS: ALPRAZolam 0.5 MG TAB PO PRN ×3 (11:50→21:44)
[2021-08-03] MEDS: ASCORBIC ACID 1,000 MG TAB PO SCH (11:57)
[2021-08-03] MEDS: ZINC SULFATE 220mg CAP or TAB PO SCH (11:57)
[2021-08-03] MEDS: DexAMETHasone SOD PHOS 10MG/1ML VIAL INJ IV SCH (11:57)
[2021-08-03] MEDS: CHOLECALCIFEROL (VITD3) 2,000 UNIT CAP/TAB PO SCH (11:57)
[2021-08-03] MEDS: HCTZ 25 MG TAB PO SCH (11:58)
[2021-08-03 13:00] VITALS: BP 110/71
[2021-08-03] MEDS: ACETAMINOPHEN 500 MG TAB PO PRN (16:53)
[2021-08-03 17:00] VITALS: BP 118/72
[2021-08-03] MEDS: sulfaSALAzine 500 MG TAB PO SCH (17:42)
[2021-08-03 21:35] VITALS: BP 123/69
[2021-08-03] MEDS: ATORVASTATIN 20 MG TAB PO SCH (21:43)
[2021-08-04 04:33] VITALS: BP 141/70
[2021-08-04 05:34] LABS: Basophils # (auto) 0 10 ^3/uL (0-0.2); Basophils % (auto) 0.2 % (0.0-2.0); Eosinophils # (auto) 0.1 10 ^3/uL (0-0.8); Eosinophils % (auto) 1.2 % (0.0-7.0); Hematocrit 42.4 % (41.0-53.0); Hemoglobin 14.1 g/dL (13.5-17.5); Lymphocytes # (auto) 1.4 10 ^3/uL (0.4-5.4); Lymphocytes % (auto) 15.7 % (10.0-50.0); Mean Corpuscular Hemoglobin 29.8 pg (28.0-32.0); Mean Corpuscular Hgb Conc. 33.4 g/dL (32.0-36.0); Mean Corpuscular Volume 89.3 fL (80.0-100.0); Monocytes # (auto) 0.6 10 ^3/uL (0-1.3); Monocytes % (auto) 6.8 % (0.0-12.0); Neutrophils # (auto) 6.7 10 ^3/uL (1.6-8.6); Neutrophils % (auto) 76.1 % (37.0-80.0); Red Blood Cells 4.75 10^6/uL (4.5-5.90); Red Cell Distribution Width 13.3 % (11.8-14.3); White Blood Cell 8.8 10^3/uL (4.4-10.8)
[2021-08-04 05:51] LABS: Albumin 2.4 g/dL (3.4-5.0); BUN/Creatinine Ratio 51.2; Bilirubin, Total 0.4 mg/dL (0.2-1.0); Calcium 8.7 mg/dL (8.5-10.1); Total Protein 6.3 g/dL (6.4-8.2)
[2021-08-04] MEDS: SALINE 0.65 % NASAL SPRAY 45ML BOTTLE EACHNOSTRI SCH ×3 (06:17→22:59)
[2021-08-04] MEDS: GABAPENTIN 300 MG CAP PO SCH ×3 (06:17→23:19)
[2021-08-04] MEDS: ACCU-CHEK COMFORT CURVE STRIP VI SCH ×4 (06:32→22:59)
[2021-08-04] MEDS: InsuLIN REG 1unit/0.01ml Soln (100units/ml) SC SCH ×4 (06:33→23:12)
[2021-08-04 08:30] VITALS: BP 126/77
[2021-08-04] MEDS: DexAMETHasone SOD PHOS 10MG/1ML VIAL INJ IV SCH (09:08)
[2021-08-04] MEDS: sulfaSALAzine 500 MG TAB PO SCH ×2 (09:08→18:00)
[2021-08-04] MEDS: HCTZ 25 MG TAB PO SCH (09:09)
[2021-08-04] MEDS: ASCORBIC ACID 1,000 MG TAB PO SCH (09:09)
[2021-08-04] MEDS: ZINC SULFATE 220mg CAP or TAB PO SCH (09:09)
[2021-08-04] MEDS: CHOLECALCIFEROL (VITD3) 2,000 UNIT CAP/TAB PO SCH (09:10)
[2021-08-04] MEDS: ALPRAZolam 0.5 MG TAB PO PRN ×2 (09:11→23:19)
[2021-08-04 12:30] VITALS: BP 117/68
[2021-08-04 17:00] VITALS: BP 119/73
[2021-08-04] MEDS: ALBUTEROL SULF HFA 90MCG INH 200DOSE IN PRN (19:45)
[2021-08-04 21:31] VITALS: BP 111/58
[2021-08-04] MEDS: ATORVASTATIN 20 MG TAB PO SCH (23:19)
[2021-08-05] VITALS (7 sets, daily range): BP systolic 81–129; BP diastolic 46–76
[2021-08-05] MEDS: ACETAMINOPHEN 500 MG TAB PO PRN (04:38)
[2021-08-05 06:03] LABS: Basophils # (auto) 0 10 ^3/uL (0-0.2); Basophils % (auto) 0.3 % (0.0-2.0); Eosinophils # (auto) 0.1 10 ^3/uL (0-0.8); Eosinophils % (auto) 1.4 % (0.0-7.0); Hematocrit 40.6 % (41.0-53.0); Hemoglobin 13.6 g/dL (13.5-17.5); Lymphocytes # (auto) 1.7 10 ^3/uL (0.4-5.4); Lymphocytes % (auto) 16.8 % (10.0-50.0); Mean Corpuscular Hemoglobin 30.2 pg (28.0-32.0); Mean Corpuscular Hgb Conc. 33.5 g/dL (32.0-36.0); Mean Corpuscular Volume 90.1 fL (80.0-100.0); Monocytes # (auto) 0.7 10 ^3/uL (0-1.3); Monocytes % (auto) 7.2 % (0.0-12.0); Neutrophils # (auto) 7.3 10 ^3/uL (1.6-8.6); Neutrophils % (auto) 74.3 % (37.0-80.0); Nucleated Red Blood Cells % 0.1 %; Red Blood Cells 4.51 10^6/uL (4.5-5.90); Red Cell Distribution Width 13.5 % (11.8-14.3); White Blood Cell 9.8 10^3/uL (4.4-10.8)
[2021-08-05] MEDS: SALINE 0.65 % NASAL SPRAY 45ML BOTTLE EACHNOSTRI SCH ×3 (06:26→21:49)
[2021-08-05] MEDS: GABAPENTIN 300 MG CAP PO SCH ×3 (06:27→21:38)
[2021-08-05] MEDS: ACCU-CHEK COMFORT CURVE STRIP VI SCH ×4 (06:27→21:38)
[2021-08-05] MEDS: InsuLIN REG 1unit/0.01ml Soln (100units/ml) SC SCH ×4 (06:27→21:45)
[2021-08-05] MEDS: ALBUTEROL SULF HFA 90MCG INH 200DOSE IN PRN (06:38)
[2021-08-05 06:39] LABS: Alanine Aminotransferase 340 U/L (16-61); Albumin 2.1 g/dL (3.4-5.0); Anion Gap 4 (5-15); Aspartate Aminotransferase 87 U/L (15-37); Blood Urea Nitrogen 22 mg/dL (7-18); Calcium 8.2 mg/dL (8.5-10.1); Carbon Dioxide 37 mmol/L (21-32); Chloride 98 mmol/L (98-107); GFR African American 246 mL/min; GFR Non-African American 204 mL/min; Glucose 87 mg/dL (74-106); Potassium 3.7 mmol/L (3.5-5.1); Sodium 139 mmol/L (136-145)
[2021-08-05 06:41] LABS: Alkaline Phosphatase 130 U/L (45-117); Bilirubin, Total 0.4 mg/dL (0.2-1.0); Total Protein 6.1 g/dL (6.4-8.2)
[2021-08-05] MEDS: sulfaSALAzine 500 MG TAB PO SCH ×2 (08:00→18:57)
[2021-08-05] MEDS: DexAMETHasone SOD PHOS 10MG/1ML VIAL INJ IV SCH (09:13)
[2021-08-05] MEDS: ZINC SULFATE 220mg CAP or TAB PO SCH (09:13)
[2021-08-05] MEDS: ASCORBIC ACID 1,000 MG TAB PO SCH (09:13)
[2021-08-05] MEDS: CHOLECALCIFEROL (VITD3) 2,000 UNIT CAP/TAB PO SCH (09:13)
[2021-08-05] MEDS: HCTZ 25 MG TAB PO SCH (09:25)
[2021-08-05] MEDS: ALPRAZolam 0.5 MG TAB PO PRN ×2 (09:40→21:38)
[2021-08-05] MEDS ORDERED: ALBUMIN 5% 50 ML IV ONE (10:15)
[2021-08-05] MEDS: ATORVASTATIN 20 MG TAB PO SCH (21:38)
[2021-08-06 05:00] VITALS: BP 114/70
[2021-08-06] MEDS: ACCU-CHEK COMFORT CURVE STRIP VI SCH ×4 (06:01→21:38)
[2021-08-06] MEDS: GABAPENTIN 300 MG CAP PO SCH ×4 (06:01→21:38)
[2021-08-06] MEDS: SALINE 0.65 % NASAL SPRAY 45ML BOTTLE EACHNOSTRI SCH ×3 (06:01→21:37)
[2021-08-06] MEDS: InsuLIN REG 1unit/0.01ml Soln (100units/ml) SC SCH ×5 (06:01→21:33)
[2021-08-06 06:03] LABS: Basophils # (auto) 0 10 ^3/uL (0-0.2); Basophils % (auto) 0.4 % (0.0-2.0); Eosinophils # (auto) 0.1 10 ^3/uL (0-0.8); Eosinophils % (auto) 1.2 % (0.0-7.0); Hemoglobin 13.4 g/dL (13.5-17.5); Lymphocytes # (auto) 1.6 10 ^3/uL (0.4-5.4); Mean Corpuscular Hemoglobin 30.1 pg (28.0-32.0); Mean Corpuscular Hgb Conc. 33.6 g/dL (32.0-36.0); Mean Corpuscular Volume 89.4 fL (80.0-100.0); Monocytes # (auto) 0.6 10 ^3/uL (0-1.3); Monocytes % (auto) 6.3 % (0.0-12.0); Neutrophils # (auto) 7.7 10 ^3/uL (1.6-8.6); Neutrophils % (auto) 76.1 % (37.0-80.0); Nucleated Red Blood Cells % 0.1 %; Red Blood Cells 4.47 10^6/uL (4.5-5.90); Red Cell Distribution Width 13.3 % (11.8-14.3); White Blood Cell 10.2 10^3/uL (4.4-10.8)
[2021-08-06 06:24] LABS: Albumin 2.3 g/dL (3.4-5.0); Calcium 8.4 mg/dL (8.5-10.1); Potassium 3.7 mmol/L (3.5-5.1)
[2021-08-06 06:27] LABS: BUN/Creatinine Ratio 46.7; Bilirubin, Total 0.4 mg/dL (0.2-1.0); Total Protein 6.2 g/dL (6.4-8.2)
[2021-08-06] MEDS: ALBUTEROL SULF HFA 90MCG INH 200DOSE IN PRN ×2 (07:19→19:58)
[2021-08-06 08:45] VITALS: BP 129/70
[2021-08-06] MEDS: ASCORBIC ACID 1,000 MG TAB PO SCH (09:07)
[2021-08-06] MEDS: DexAMETHasone SOD PHOS 10MG/1ML VIAL INJ IV SCH (09:07)
[2021-08-06] MEDS: CHOLECALCIFEROL (VITD3) 2,000 UNIT CAP/TAB PO SCH (09:07)
[2021-08-06] MEDS: ZINC SULFATE 220mg CAP or TAB PO SCH (09:07)
[2021-08-06] MEDS: sulfaSALAzine 500 MG TAB PO SCH ×2 (09:07→18:53)
[2021-08-06 11:47] VITALS: BP 138/71
[2021-08-06 16:35] VITALS: BP 134/68
[2021-08-06] MEDS: ALPRAZolam 0.5 MG TAB PO PRN (20:39)
[2021-08-06 21:32] VITALS: BP 109/64
[2021-08-06] MEDS: ATORVASTATIN 20 MG TAB PO SCH (21:38)
[2021-08-06] MEDS: APIXABAN 5 MG TAB PO SCH (21:38)
[2021-08-07] VITALS (10 sets, daily range): BP systolic 111–122; BP diastolic 65–83
[2021-08-07] MEDS: GABAPENTIN 300 MG CAP PO SCH ×3 (06:14→21:13)
[2021-08-07] MEDS: SALINE 0.65 % NASAL SPRAY 45ML BOTTLE EACHNOSTRI SCH ×3 (06:15→21:14)
[2021-08-07] MEDS: ACCU-CHEK COMFORT CURVE STRIP VI SCH ×4 (06:15→21:12)
[2021-08-07] MEDS: InsuLIN REG 1unit/0.01ml Soln (100units/ml) SC SCH ×4 (06:15→21:12)
[2021-08-07 07:40] LABS: Basophils # (auto) 0 10 ^3/uL (0-0.2); Basophils % (auto) 0.2 % (0.0-2.0); Eosinophils # (auto) 0.1 10 ^3/uL (0-0.8); Eosinophils % (auto) 1.4 % (0.0-7.0); Hematocrit 40.5 % (41.0-53.0); Hemoglobin 12.9 g/dL (13.5-17.5); Lymphocytes # (auto) 1.3 10 ^3/uL (0.4-5.4); Mean Corpuscular Hemoglobin 28.8 pg (28.0-32.0); Mean Corpuscular Hgb Conc. 31.7 g/dL (32.0-36.0); Mean Corpuscular Volume 90.9 fL (80.0-100.0); Monocytes # (auto) 0.6 10 ^3/uL (0-1.3); Monocytes % (auto) 7.1 % (0.0-12.0); Neutrophils # (auto) 6.6 10 ^3/uL (1.6-8.6); Neutrophils % (auto) 76.3 % (37.0-80.0); Nucleated Red Blood Cells % 0.1 %; Red Blood Cells 4.46 10^6/uL (4.5-5.90); Red Cell Distribution Width 13.7 % (11.8-14.3); White Blood Cell 8.7 10^3/uL (4.4-10.8)
[2021-08-07] MEDS: ALBUTEROL SULF HFA 90MCG INH 200DOSE IN PRN ×2 (07:47→19:25)
[2021-08-07 07:56] LABS: Potassium 3.6 mmol/L (3.5-5.1)
[2021-08-07 08:01] LABS: Albumin 2.3 g/dL (3.4-5.0); BUN/Creatinine Ratio 44.4; Calcium 8.7 mg/dL (8.5-10.1)
[2021-08-07] MEDS: APIXABAN 5 MG TAB PO SCH ×2 (08:39→21:14)
[2021-08-07] MEDS: ASCORBIC ACID 1,000 MG TAB PO SCH (08:39)
[2021-08-07] MEDS: DexAMETHasone SOD PHOS 10MG/1ML VIAL INJ IV SCH (08:39)
[2021-08-07] MEDS: sulfaSALAzine 500 MG TAB PO SCH ×2 (08:39→18:59)
[2021-08-07] MEDS: ALPRAZolam 0.5 MG TAB PO PRN ×2 (08:39→22:32)
[2021-08-07] MEDS: ZINC SULFATE 220mg CAP or TAB PO SCH (08:39)
[2021-08-07] MEDS: CHOLECALCIFEROL (VITD3) 2,000 UNIT CAP/TAB PO SCH (08:40)
[2021-08-07 09:33] LABS: Bilirubin, Total 0.3 mg/dL (0.2-1.0); Total Protein 5.9 g/dL (6.4-8.2)
[2021-08-07] MEDS: ATORVASTATIN 20 MG TAB PO SCH (21:14)
[2021-08-08 05:00] VITALS: BP 105/60
[2021-08-08 06:02] LABS: Basophils # (auto) 0 10 ^3/uL (0-0.2); Basophils % (auto) 0.2 % (0.0-2.0); Eosinophils # (auto) 0.1 10 ^3/uL (0-0.8); Eosinophils % (auto) 1.4 % (0.0-7.0); Hematocrit 37.5 % (41.0-53.0); Hemoglobin 12.7 g/dL (13.5-17.5); Lymphocytes # (auto) 1.5 10 ^3/uL (0.4-5.4); Lymphocytes % (auto) 18.2 % (10.0-50.0); Mean Corpuscular Hemoglobin 30.5 pg (28.0-32.0); Mean Corpuscular Hgb Conc. 33.9 g/dL (32.0-36.0); Mean Corpuscular Volume 89.8 fL (80.0-100.0); Monocytes # (auto) 0.5 10 ^3/uL (0-1.3); Monocytes % (auto) 6.3 % (0.0-12.0); Neutrophils % (auto) 73.9 % (37.0-80.0); Nucleated Red Blood Cells % 0.1 %; Red Blood Cells 4.18 10^6/uL (4.5-5.90); Red Cell Distribution Width 13.5 % (11.8-14.3); White Blood Cell 8.2 10^3/uL (4.4-10.8)
[2021-08-08] MEDS: GABAPENTIN 300 MG CAP PO SCH ×2 (06:11→13:53)
[2021-08-08] MEDS: InsuLIN REG 1unit/0.01ml Soln (100units/ml) SC SCH ×3 (06:11→17:17)
[2021-08-08] MEDS: SALINE 0.65 % NASAL SPRAY 45ML BOTTLE EACHNOSTRI SCH ×2 (06:11→13:53)
[2021-08-08] MEDS: ACCU-CHEK COMFORT CURVE STRIP VI SCH ×3 (06:11→17:16)
[2021-08-08 06:16] LABS: Albumin 2.3 g/dL (3.4-5.0); Calcium 8.2 mg/dL (8.5-10.1); Potassium 4.2 mmol/L (3.5-5.1)
[2021-08-08 06:19] LABS: BUN/Creatinine Ratio 48.7; Bilirubin, Total 0.4 mg/dL (0.2-1.0); Total Protein 5.4 g/dL (6.4-8.2)
[2021-08-08] MEDS: ALBUTEROL SULF HFA 90MCG INH 200DOSE IN PRN (07:04)
[2021-08-08 08:00] VITALS: BP 115/66
[2021-08-08] MEDS: sulfaSALAzine 500 MG TAB PO SCH ×2 (08:35→17:31)
[2021-08-08] MEDS: ZINC SULFATE 220mg CAP or TAB PO SCH (08:42)
[2021-08-08] MEDS: DexAMETHasone SOD PHOS 10MG/1ML VIAL INJ IV SCH (08:42)
[2021-08-08] MEDS: ASCORBIC ACID 1,000 MG TAB PO SCH (08:43)
[2021-08-08] MEDS: APIXABAN 5 MG TAB PO SCH (08:43)
[2021-08-08] MEDS: CHOLECALCIFEROL (VITD3) 2,000 UNIT CAP/TAB PO SCH (08:43)
[2021-08-08] MEDS: ALPRAZolam 0.5 MG TAB PO PRN (10:01)
[2021-08-08 12:00] VITALS: BP 123/85
[2021-08-08 16:00] VITALS: BP 124/72
[2021-08-08 17:20] VITALS: BP 124/72
== END 2021-08-08 18:48 | disposition hospice, home (50) | DRG 177 ==
LOC: ER 09:41 → EDBD 09:41 → TELE 18:04 → TELE-WESTW 22:36 → TELE-E-ADS 07-31 17:53
PROVIDERS: ADMIT Hospitalist; ATTEND Hospitalist
PROC: XW033E5 Introduction of Remdesivir Anti-infective into Peripheral Vein, Percutaneous Approach, New Technology Group 5 (ICD-10-PCS; principal; 2021-07-10)
PROC: 5A0935A Assistance with Respiratory Ventilation, Less than 24 Consecutive Hours, High Flow/Velocity Cannula (ICD-10-PCS; 2021-07-31)
PROC: 5A0935A Assistance with Respiratory Ventilation, Less than 24 Consecutive Hours, High Flow/Velocity Cannula (ICD-10-PCS; 2021-08-01)
PROC: 5A0935A Assistance with Respiratory Ventilation, Less than 24 Consecutive Hours, High Flow/Velocity Cannula (ICD-10-PCS; 2021-08-02)
PROC: 5A0935A Assistance with Respiratory Ventilation, Less than 24 Consecutive Hours, High Flow/Velocity Cannula (ICD-10-PCS; 2021-08-03)
PROC: 5A0935A Assistance with Respiratory Ventilation, Less than 24 Consecutive Hours, High Flow/Velocity Cannula (ICD-10-PCS; 2021-08-04)
PROC: 5A0935A Assistance with Respiratory Ventilation, Less than 24 Consecutive Hours, High Flow/Velocity Cannula (ICD-10-PCS; 2021-08-06)
PROC: 5A0935A Assistance with Respiratory Ventilation, Less than 24 Consecutive Hours, High Flow/Velocity Cannula (ICD-10-PCS; 2021-08-07)
PROC: 5A0935A Assistance with Respiratory Ventilation, Less than 24 Consecutive Hours, High Flow/Velocity Cannula (ICD-10-PCS; 2021-08-08)
DX: U07.1 COVID-19 (principal); J12.82 Pneumonia due to coronavirus disease 2019; J96.01 Acute respiratory failure with hypoxia; E87.6 Hypokalemia; I10 Essential (primary) hypertension; I95.9 Hypotension, unspecified
CPT/HCPCS: 36415; 36600; 71045; 71275; 80053; 81001; 82728; 82805; 82962; 83605; 83615; 83735; 84443; 84484; 85007; 85025; 85027; 85379; 86141; 87081; 87426; 93005; 93306; 94640; 96365; 96375; G0378; J1100; J1815